=== PATIENT | female | born 1935 | race Caucasian/White ===

== ENCOUNTER → 2018-02-07 | Outpatient (CLI) | payer MEDICARE ==
[2018-02-07 12:04] LABS: Blood Urea Nitrogen 12 mg/dL (7-17)
--- NOTE | 2018-02-07 13:20 | CT ---
EXAMINATION TYPE: CT chest w con DATE OF EXAM: 02/07/2018 COMPARISON: NONE HISTORY: Cough. Follow up nodule seen on outside institution. CT DLP: 200.5 mGycm. Automated Exposure Control for Dose Reduction was Utilized. TECHNIQUE: CT scan of the thorax is performed following with IV Contrast, patient injected with 100 mL of Isovue 300. FINDINGS: LUNGS: There is bilateral multifocal noncalcific pleural parenchymal thickening possibly relating to prior asbestos exposure. Few punctate benign granulomas are seen within the right upper lobe and left lower lobe. Scattered groundglass opacities with a somewhat nodular and morphology are seen within t he lingula and right middle lobe such as on series 4 image 27. Peribronchial cuffing within the lingu la and right middle lobe are also seen. Right basilar opacity in the coronal image 34 retraction of m inor fissure and extensive pleural surface with traction bronchiectasis suggesting fibrosis measuring 1.2 cm. Lingular varicose bronchiectasis and cylindrical right middle lobe bronchiectasis are noted. Subpleural reticulation is seen in addition to biapical nodular pleural thickening. Nodule in the ri ght upper lobe measuring 7 mm on series 4 image 17 is contiguous with an area of pleural parenchymal scarring. Left basilar tree-in-bud opacities are also seen on image 30. Mucus plugging is seen within the left lung base. The most nodular consolidation is seen within the right cardiophrenic angle best visualized on smith l series 6 image 49 measuring up tor 1.6 cm. Scattered patchy groundglass opacities are seen througho ut. MEDIASTINUM: There are no greater than 1 cm hilar or mediastinal lymph nodes. No pericardial effusi on is seen. Ascending thoracic aorta is within normal limits measuring 3.3 cm as is the main pulmona ry artery measuring 2.7 cm. Moderate coronary artery calcifications are present. OTHER: There is a small hiatal hernia identified. IMPRESSION: 1. Pulmonary nodules with the largest measuring 1.6 cm at the right cardiophrenic angle within the ri ght lower lobe. Comparison with any prior outside imaging would be of benefit. If there is no prior o utside imaging available for assessment of increased or decreased in size short-term follow-up CT is recommended in 3 months as multitude of other findings suggest superimposed infectious etiology and t herefore some pulmonary nodules could be infectious or inflammatory. 2. Tree-in-bud opacity in the left lower lobe suggesting small airway disease of reactive or infectio us etiology. Peribronchial cuffing also seen within the lingula and right middle lobe with bronchiect asis may relate to reactive or infectious airway disease and/or bronchitis. Additionally these findin gs can be seen in atypical infection such as mycobacterium avium complex. 3. 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
== END ==
LOC: RADCTMAIN 11:26
PROVIDERS: ATTEND Family Medicine
DX: R91.8 Other nonspecific abnormal finding of lung field (principal); J47.9 Bronchiectasis, uncomplicated; J92.9 Pleural plaque without asbestos; J18.9 Pneumonia, unspecified organism
CPT/HCPCS: 82565; 84520; 71260; Q9967

== ENCOUNTER → 2018-03-16 | Outpatient (CLI) | payer MEDICARE ==
--- NOTE | 2018-03-21 11:02 | PE ---
EXAMINATION TYPE: PET CT fusion skull to thigh DATE OF EXAM: 03/16/2018 COMPARISON: Chest CT February 07, 2018 HISTORY: Solitary pulmonary nodule TECHNIQUE: Following the intravenous administration of 14.493 mCi of F-18 FDG, whole body images are performed from the skull base to the midthigh. Images are reviewed on the computer in the coronal, axial, and sagittal planes. Reconstructed rotating images are created on independent workstation and reviewed on the computer. A noncontrast CT is performed in conjunction with the PET scan. SCAN: Initial Scan FINDINGS: SKULL BASE AND NECK: No suspicious hypermetabolic uptake is seen. CHEST, MEDIASTINUM, AND HILAR REGION: In the left lower lobe medial aspect on axial image 107 there i s nearly 1.0 cm nodular consolidation or nodule with max SUV of 5.77. There is adjacent scattered reg ular atelectasis and/or consolidation without abnormal hypermetabolic uptake near nodule in the left lung base. There is scattered pleural/parenchymal scarring throughout both lungs including bilateral apices without abnormal hypermetabolic uptake. ABDOMEN AND PELVIS: No suspicious hypermetabolic uptake is present. OSSEOUS STRUCTURES: No suspicious hypermetabolic uptake is seen. OTHER CT: There is background underlying fairly mild to moderate emphysematous change . Coronary artery calcification is present which is noted marker for coronary artery disease. There is pleural-based consolidation possible round atelectasis in the left lung laterally near axial image 88 without abnormal hypermetabolic uptake. Gallbladder is not well-visualized and likely surgically absent. There is mild to moderate atherosclerotic change of aorta extending into branch vessels. Slight S-shaped scoliosis is present. There is facet arthropathy lower lumbar levels seen. IMPRESSION: Suspicious hypermetabolic uptake in medial nodular consolidation left lung base in which malignancy cannot be excluded. This is level of most dense irregular scarring and/or consolidation. N o adenopathy or metastatic disease is evident. Consider short-term PET/CT follow-up in 2-3 months evelin e and/or attempted sampling.
== END | disposition home or self-care (01) ==
LOC: RADPETMAIN 13:06
PROVIDERS: ATTEND Internal Medicine Critical Care Medicine
DX: R91.8 Other nonspecific abnormal finding of lung field (principal); R91.1 Solitary pulmonary nodule
CPT/HCPCS: 78815; A9552

== ENCOUNTER → 2018-04-18 | Outpatient (CLI) | payer MEDICARE ==
[2018-04-18 14:46] LABS: HCT 48.9 % (34.0-46.0); HGB 15.2 gm/dL (11.4-16.0); MCHC 31.2 g/dL (31.0-37.0); MCV 96.4 fL (80.0-100.0); Mean Platelet Volume 7.5; Platelet Count 257 k/uL (150-450); RBC 5.07 m/uL (3.80-5.40); RDW 12.9 % (11.5-15.5); WBC 9.2 k/uL (3.8-10.6)
[2018-04-18 14:55] LABS: Anion Gap 8 mmol/L; Blood Urea Nitrogen 11 mg/dL (7-17); Carbon Dioxide 27 mmol/L (22-30); Chloride 105 mmol/L (98-107); Glucose 87 mg/dL (74-99); Potassium 4.3 mmol/L (3.5-5.1); Sodium 140 mmol/L (137-145)
== END | disposition home or self-care (01) ==
LOC: LABPAT 13:46
PROVIDERS: ATTEND Thoracic Surgery (Cardiothoracic Vascular Surgery)
DX: Z01.818 Encounter for other preprocedural examination (principal); Z01.812 Encounter for preprocedural laboratory examination; R91.1 Solitary pulmonary nodule
CPT/HCPCS: 80051; 82565; 82947; 84520; 85027; 93005

== ENCOUNTER 2018-04-25 05:46 | Inpatient (IN) | payer MEDICARE ==
[2018-04-19 15:08] VITALS: BMI 23.3
[~2018-04-25 05:46] MED LIST: HYDROmorphone 0.5 MG/0.5 ML SYRINGE IVP PRN; ceFAZolin IN SWFI 2 GM/20 ML SYRINGE IVP ONE
[2018-04-25] MEDS: LACTATED RINGERS 1,000 ML IV SCH ×2 (06:37→07:28)
[2018-04-25] MEDS: ONDANSETRON 4 MG/2 ML VIAL IVP ONE ×3 (06:44→16:21)
[2018-04-25] MEDS ORDERED: ROCURONIUM BROMIDE 10 MG/ML 10 ML VIAL IV ONE (07:29)
[2018-04-25] MEDS ORDERED: SUCCINYLCHOLINE CHLORIDE 100 MG/5 ML SYR IV ONE (07:29)
[2018-04-25] MEDS ORDERED: fentaNYL (PF) 50 MCG/ML 2 ML AMP ONE (07:29)
[2018-04-25] MEDS ORDERED: PROPOFOL 10 MG/ML 20 ML VIAL IV ONE (07:29)
[2018-04-25] MEDS ORDERED: NEOSTIGMINE 1 MG/ML 10 ML VIAL ONE (07:29)
[2018-04-25] MEDS ORDERED: GLYCOPYRROLATE 0.2 MG/ML 2 ML VIAL ONE (07:29)
[2018-04-25] MEDS ORDERED: MIDAZOLAM 2 MG/2 ML VIAL ONE (07:29)
[2018-04-25] MEDS ORDERED: PHENYLEPHRINE-0.9% NACL SYG 1 MG/10 ML SYRINGE ONE (07:29)
[2018-04-25] MEDS ORDERED: ROPIVACAINE 5 MG/ML 30 ML VIAL MISCELLANE ONE ×2 (08:04)
--- NOTE | 2018-04-25 09:01 | P.OP ---
Date of Procedure: 04/25/18 Preoperative Diagnosis: Bilateral diffuse pulmonary infiltrates, localized area of increased PET Uptake in left lower lobe near inferior pulmonary ligament. Postoperative Diagnosis: Same Procedure(s) Performed: Left thoracoscopic wedge resection of left lower lobe Anesthesia: ERINNA Surgeon: Diony Clements Estimated Blood Loss (ml): 10 IV fluids (ml): 500 Urine output (ml): 0 Pathology: other (Wedge resection left lower lobe for permanent section) Condition: stable Disposition: PACU Indications for Procedure: Patient is an 82-year-old female with long-standing inflammatory lung disease of uncertain etiology. This is been stable over time. She recently underwent evaluation by pulmonary medicine because of complaints of worsening and persistent cough. Computed tomography scan confirmed the presence of bilateral patchy pulmonary infiltrates. PET scan was obtained and demonstrated a focal area of uptake in the left lower lobe by the inferior pulmonary ligament with an SUV around 6. This raised concern for malignancy in this area. Lung biopsy was requested by pulmonary medicine. Operative Findings: There was diffuse disease of the lung with poor lung compliance and evidence of bullous disease present. There were no masses palpable. Description of Procedure: The patient was brought to the operating room, placed supine on the operating table, anesthetized and intubated with a double-lumen endotracheal tube. Tube was positioned with bronchoscopic guidance. No endobronchial lesions were noted. The tube was secured and the patient turned in the right lateral decubitus position. Tube position was double checked with the bronchoscope. Left chest was sterilely prepped and draped. Incision was made in the seventh interspace and the Thoracoport was placed. The lung was deflated. Thoracoscope was placed into the chest cavity. The lung was boggy with findings as noted above. To further incisions were made 1 superiorly inferior to the first both somewhat posterior to the first. This allowed us to retract the lung and visualized the inferior pulmonary ligament. An Endo CAESAR stapler with medium thick bruce and a 45 length was used to divide the lower lobe parallel to the inferior pulmonary ligament from the diaphragmatic service toward the hilum. Following this initial incision, inferior pulmonary ligament was taken down with electrocautery. We then completed the wedge resection by dividing from the previous staple line to the inferior pulmonary ligament. Specimen was brought out onto the field and placed on the back table. 28- Ghanaian chest tube was placed through separate stab incision and positioned posterior apically. Secured with 0 Ethibond. The lung was inflated under direct vision. Rib blocks were performed at the level of the incisions posteriorly. Incisions were closed with layers of Vicryl suture and skin glue dressing applied to the 3 incisions. Chest tube site was dressed with a chest tube dressing in the chest tube connected to the Pleur-evac. We went to the back table to cut the specimen for culture and discovered the OR team and placed it in formalin. Therefore no cultures were sent. The patient was turned supine and extubated and transferred to recovery room in stable condition.
[2018-04-25] MEDS ORDERED: fentaNYL (PF) 50 MCG/ML 2 ML AMP IVP ONE (09:17)
[2018-04-25] MEDS ORDERED: FAMOTIDINE 20 MG TAB PO PRN (09:26)
[2018-04-25] MEDS ORDERED: IPRATROPIUM-ALBUTEROL 3 ML NEB IH PRN (09:28)
[2018-04-25] MEDS ORDERED: ONDANSETRON 4 MG/2 ML VIAL IVP PRN (09:28)
--- NOTE | 2018-04-25 09:53 | XR ---
EXAMINATION TYPE: XR chest 1V portable DATE OF EXAM: 04/25/2018 COMPARISON: 02/07/2018 HISTORY: Postop TECHNIQUE: Single frontal view of the chest is obtained. FINDINGS: Left-sided chest tube is seen with approximate 10% left-sided pneumothorax and subcutaneou s emphysema. There is bilateral subsegmental atelectasis or infiltrate with small effusion. Hyperinfl ation suggests COPD. Diffuse osteopenia and arthropathy of the shoulders. Hyperinflation suggests [employer] ADMINISTRATOR D. IMPRESSION: 1. Bilateral infiltrate and small effusion with 10% left-sided pneumothorax. Correlate clinically.
[2018-04-25] MEDS: DEXTROSE 5%-0.45% NACL 1,000 ML IV SCH (11:21)
[2018-04-25] MEDS: KETOROLAC 30 MG/ML 1 ML VIAL IVP SCH ×3 (11:22→21:18)
[2018-04-25] MEDS: IPRATROPIUM-ALBUTEROL 3 ML NEB IH SCH ×3 (11:44→20:18)
--- NOTE | 2018-04-25 13:17 | P.ONQ ---
Anesthesiology Proc Note - PNB - Peripheral Nerve Block Performed Other (see comment) Time Out Performed: Yes (Erector Spinae Block) Procedure Start Time: 10:05 Procedure Stop Time: 10:10 Indication: Acute Post-Operative Pain, Requested by physician Sedation Type: Awake Preparation: Sterile Prep Position: Sitting Catheter: None Needle Types: On-Q Needle Size: 50mm (2") Needle Gauge: 20 Technique: Ultrasound Injectate: 0.5% Ropivacaine (see comment for volume) (20)
--- NOTE | 2018-04-25 13:37 | P.CNPUL ---
History of Present Illness Consult date: 04/25/18 Requesting physician: Diony Clements Reason for consult: abnormal CXR/CT Chief complaint: Lung mass History of present illness: This is a very pleasant 82-year-old female patient who follows with Dr. Vazquez is her primary care physician. She has a history of rheumatoid arthritis, hyperlipidemia. She also has a history of Mycobacterium avium complex infection that was treated by a tray server in [place] and chronic obstructive pulmonary disease with a history of chronic tobacco dependence. She was initially seen by Dr. Blunt 04/03/2018 in our office as a new patient for an abnormal CAT scan. There was noted abnormalities on the right lower lobe but also on the left lower lobe. She had subsequently undergone a PET scan which was positive for the lesion of the left lung disease. He felt this was very difficult to biopsy via navigational system as the lesion was relatively small and difficult to access. She was subsequently referred to cardiothoracic surgeons who felt she was a candidate for surgical excision. She presented here today for an elective surgery by Dr. Clements. He did perform a left thorascopic wedge resection of the left lower lobe. He found diffuse disease of the lung with poor lung compliance and evidence of bullous disease as well. No palpable masses. He is seen today in consultation on the selective care unit. She is currently awake and alert in no acute distress. He is maintaining good O2 saturations in the high 90s on 2 L/m per nasal cannula. She's been afebrile. Hemodynamically stable. Chest x-ray reveals bilateral subsegmental atelectasis/infiltrate and small effusion with a 10% left -sided pneumothorax. Left-sided chest tube is in place. She is again educated regarding the use of the incentive spirometer. She is on DuoNeb inhalations 4 times a day and when necessary, Toradol for pain control. Review of Systems Constitutional: Reports fatigue, Reports weakness Eyes: denies blurred vision, denies decreased vision Ears: deny: decreased hearing Ears, nose, mouth and throat: Denies headache, Denies sore throat Cardiovascular: Denies chest pain, Denies shortness of breath Respiratory: Reports dyspnea, Reports pain on inspiration Gastrointestinal: Denies abdominal pain, Denies diarrhea, Denies nausea, Denies vomiting Genitourinary: Denies dysuria, Denies hematuria Musculoskeletal: Reports as per HPI Integumentary: Denies pruritus, Denies rash Neurological: Denies numbness, Denies weakness Psychiatric: Denies anxiety, Denies depression Endocrine: Denies fatigue, Denies weight change Hematologic/Lymphatic: Reports as per HPI Allergic/Immunologic: Reports as per HPI Past Medical History Past Medical History: GERD/Reflux, Hearing Disorder / Deafness, Hyperlipidemia, Pneumonia, Rheumatoid Arthritis (RA) Additional Past Medical History / Comment(s): PNEUMONIA 02/2018. SHORT OF BREATH W/ STAIRS. LT LUNG MASS CURRENT. History of Any Multi-Drug Resistant Organisms: None Reported Past Surgical History: Cholecystectomy Additional Past Surgical History / Comment(s): OVARIES REMOVED. REMOVAL CATARACTS. Past Anesthesia/Blood Transfusion Reactions: No Reported Reaction Smoking Status: Former smoker - Past Family History Mother Family Medical History: No Reported History Medications and Allergies Home Medications Medication Instructions Recorded Confirmed Type Aspirin [Adult Low Dose Aspirin EC] 81 mg PO DAILY 04/19/18 04/25/18 History Chlorpheniramine Maleate 4 mg PO Q4H PRN 04/19/18 04/25/18 History Cholecalciferol (Vitamin D3) 2,000 unit PO DAILY 04/19/18 04/25/18 History [Vitamin D3] Lovastatin [Mevacor] 40 mg PO HS 04/19/18 04/25/18 History Multivitamins, Thera [Multivitamin 1 tab PO DAILY 04/19/18 04/25/18 History (formulary)] Ranitidine HCl [Zantac] 150 mg PO BID PRN 04/19/18 04/25/18 History sulfaSALAzine [Azulfidine] 500 mg PO BID 04/19/18 04/25/18 History Potassium Gluconate 495 mg PO DAILY 04/25/18 04/25/18 History Allergies Allergy/AdvReac Type Severity Reaction Status Date / Time meperidine [From Demerol] Allergy Nausea & Verified 04/25/18 10:31 Vomiting Physical Exam Vitals: Vital Signs Temp Pulse Pulse Resp BP BP Pulse Ox 04/25/18 11:52 71 16 04/25/18 11:44 69 16 99 04/25/18 10:24 65 16 124/67 97 04/25/18 09:45 62 16 133/72 99 04/25/18 09:32 62 16 151/59 99 04/25/18 09:13 64 16 149/57 100 04/25/18 08:57 69 16 140/57 100 04/25/18 08:48 81 16 148/60 99 04/25/18 06:25 97.4 F L 78 18 155/78 139/75 97 Intake and Output 04/24/18 04/25/18 04/25/18 22:59 06:59 14:59 Intake Total 1100 Output Total 155 Balance 945 Intake: IV 1100 Output: Urine 150 Estimated Blood Loss 5 - Constitutional General appearance: average body habitus - EENT Eyes: EOMI, PERRLA ENT: hearing grossly normal Ears: bilateral: normal - Neck Neck: normal ROM Carotids: bilateral: upstroke normal Thyroid: bilateral: normal size - Respiratory Respiratory: left: diminished, bilateral: rales - Cardiovascular Rhythm: regular Heart sounds: normal: S1, S2 - Gastrointestinal General gastrointestinal: normal bowel sounds - Integumentary Integumentary: normal turgor - Neurologic Neurologic: CNII-XII intact - Musculoskeletal Musculoskeletal: gait normal - Psychiatric Psychiatric: A&O x's 3, appropriate affect, intact judgment & insight Results - Diagnostic Findings Chest x-ray: image reviewed Assessment and Plan Assessment: Impression: #1 Left lower lobe 1.0 cm nodular consolidation with a max SUV of 5.77. Status post left thorascopic wedge resection of the left lower lobe. There is also noted diffuse disease along with poor lung compliance and evidence of bullous disease. No masses palpable. Postoperative day #0. #2 Chronic obstructive pulmonary disease with FEV1 value 64% of predicted. #3 History of 30 year pack per day smoking. #4 History of pulmonary Mycobacterium avium complex infection. #5 Bronchiectasis. #6 Hyperlipidemia. #7 Rheumatoid arthritis. Plan: The patient was seen and evaluated by Dr. Huizar. Chest x-ray was reviewed. The patient is currently stable from the pulmonary standpoint. Continue bronchodilators. She is again educated regarding the increased use of the incentive spirometer and cough and deep breathing exercises. Titrate down the FiO2 will maintaining O2 saturations greater than 92%. Increase her activity as tolerated. Repeat chest x-ray in the a.m. We'll continue to follow. I, the cosigning physician, performed a history & physical examination of the patient. Lungs sounds with crackles in the posterior bases more so on the left. Maintaining good O2 saturations in the 90s on 2 L/m per nasal cannula. I discussed the assessment and plan of care with my nurse practitioner, Christie Jiménez. I attest to the above consultation as dictated by her. Time with Patient: Greater than 30
[2018-04-25] MEDS: ceFAZolin IN SWFI 2 GM/20 ML SYRINGE IVP SCH ×2 (16:11→23:11)
[2018-04-25] MEDS: traMADol 50 MG TAB PO SCH ×4 (16:15→21:23)
[2018-04-25] MEDS: HEPARIN SODIUM,PORCINE 5,000 UNIT/ML 1 ML VIAL SQ SCH ×2 (17:55→23:11)
[2018-04-25] MEDS: sulfaSALAzine 500 MG TAB PO SCH (20:05)
[2018-04-25] MEDS: FAMOTIDINE 20 MG TAB PO SCH (20:05)
[2018-04-25] MEDS ORDERED: ATORVASTATIN 10 MG TAB PO SCH (21:00)
[2018-04-26 04:08] VITALS: RESP 18
[2018-04-26 06:25] LABS: Basophils % (A) 0 %; Eosinophils % (A) 0 %; HCT 42.7 % (34.0-46.0); HGB 13.2 gm/dL (11.4-16.0); Lymphocytes # (A) 0.9 k/uL (1.0-4.8); Lymphocytes % (A) 7 %; MCH 30.5 pg (25.0-35.0); MCHC 30.9 g/dL (31.0-37.0); MCV 98.9 fL (80.0-100.0); Monocytes # (A) 0.9 k/uL (0-1.0); Monocytes % (A) 7 %; Neutrophils # (A) 10.5 k/uL (1.3-7.7); Neutrophils % (A) 84 %; Platelet Count 209 k/uL (150-450); RBC 4.31 m/uL (3.80-5.40); RDW 13.2 % (11.5-15.5); WBC 12.5 k/uL (3.8-10.6)
[2018-04-26 06:36] LABS: Anion Gap 8 mmol/L; Blood Urea Nitrogen 16 mg/dL (7-17); Calcium 8.8 mg/dL (8.4-10.2); Carbon Dioxide 27 mmol/L (22-30); Chloride 101 mmol/L (98-107); Glucose 129 mg/dL (74-99); Sodium 136 mmol/L (137-145)
[2018-04-26] MEDS: KETOROLAC 30 MG/ML 1 ML VIAL IVP SCH ×2 (06:38→12:55)
[2018-04-26] MEDS: IPRATROPIUM-ALBUTEROL 3 ML NEB IH SCH ×2 (07:36→11:50)
[2018-04-26] MEDS: FAMOTIDINE 20 MG TAB PO SCH (08:17)
[2018-04-26] MEDS: sulfaSALAzine 500 MG TAB PO SCH (08:18)
[2018-04-26] MEDS: traMADol 50 MG TAB PO SCH (08:21)
[2018-04-26] MEDS ORDERED: ASPIRIN 81 MG PO SCH (09:00)
[2018-04-26] MEDS ORDERED: CHOLECALCIFEROL 1,000 UNIT TAB PO SCH (09:00)
[2018-04-26] MEDS ORDERED: POTASSIUM GLUCONATE 550 MG PO SCH (09:00)
--- NOTE | 2018-04-26 10:17 | XR ---
EXAMINATION TYPE: XR chest 1V DATE OF EXAM: 04/26/2018 COMPARISON: 04/25/2018 HISTORY: Postop TECHNIQUE: Single frontal view of the chest is obtained. FINDINGS: Bilateral consolidation and pleural effusion seen. Chronic interstitial lung disease and C OPD suggested. Curvature the spine noted with arthropathy of the shoulders and diffuse osteopenia. Ch est tube seen with the stable appearing 10% left-sided pneumothorax. Subcutaneous emphysema noted. IMPRESSION: 1. Bilateral consolidation and pleural effusion stable. 2. Stable 10% left-sided pneumothorax. 3. Vague 7 mm area of nodularity in the right upper lobe be followed on a short-term follow-up x-ray. Not clearly seen on the previous exam.
[2018-04-26] MEDS: HEPARIN SODIUM,PORCINE 5,000 UNIT/ML 1 ML VIAL SQ SCH (10:20)
--- NOTE | 2018-04-26 11:18 | P.PN ---
Subjective Progress Note Date: 04/26/18 Principal diagnosis: Bilateral diffuse pulmonary infiltrates, localized area of increased PET uptake in left lower lobe near the inferior pulmonary ligament. History of rheumatoid arthritis, hyperlipidemia, Mycobacterium avium complex infection, COPD, and previous tobacco dependence. POD #1 left thoracoscopic wedge resection of left lower lobe. Patient's currently sitting up in bed in no acute distress. Does complain of pain at chest tube site which is controlled on current medication regimen. Has been ambulatory in the hallway. Objective - Vital Signs Vital signs: Vital Signs Temp 98.0 F 04/26/18 08:00 Pulse 113 H 04/26/18 08:00 Resp 18 04/26/18 08:00 BP 103/55 04/26/18 08:00 Pulse Ox 91 L 04/26/18 08:00 Intake & Output 04/25/18 04/26/18 04/26/18 18:59 06:59 18:59 Intake Total 1300 350 120 Output Total 755 89 Balance 545 261 120 Weight 68.8 kg Intake: IV 1100 Oral 200 350 120 Output: Drainage 89 Left Chest 89 Urine 750 Estimated Blood Loss 5 Other: Voiding Method Bedpan Toilet Toilet # Voids 200 - Constitutional General appearance: Present: cooperative, no acute distress, obese - Respiratory Details: Lungs sounds diminished bilaterally, left greater than right. Respirations even , nonlabored. Currently on room air infection saturation 95%. Left pleural chest tube was present this morning to waterseal, 40 mL serous drainage overnight, 130 mL since surgery, no air leak present. - Cardiovascular Details: S1, S2 present. Regular rate and rhythm, sinus rhythm on telemetry. Palpable peripheral pulses bilaterally. No edema present. No calf pain or tenderness noted. SCDs present. - Gastrointestinal Gastrointestinal Comment(s): Abdomen soft, nontender, nondistended. Active bowel sounds 4 quadrants. Tolerating diet. - Genitourinary Genitourinary Comment(s): Continues to void clear, yellow urine. - Neurologic Neurologic: Present: CNII-XII intact - Musculoskeletal Musculoskeletal: Present: gait normal, strength equal bilaterally - Psychiatric Psychiatric: Present: A&O x's 3, appropriate affect, intact judgment & insight - Allied health notes Allied health notes reviewed: nursing - Labs CBC & Chem 7: 04/26/18 05:51 04/26/18 05:51 Labs: Abnormal Lab Results - Last 24 Hours (Table) 04/26/18 04/26/18 Range/Units 05:51 05:51 WBC 12.5 H (3.8-10.6) k/uL MCHC 30.9 L (31.0-37.0) g/dL Neutrophils # 10.5 H (1.3-7.7) k/uL Lymphocytes # 0.9 L (1.0-4.8) k/uL Sodium 136 L (137-145) mmol/L Glucose 129 H (74-99) mg/dL - Imaging and Cardiology Chest x-ray: report reviewed, image reviewed Assessment and Plan (1) Bilateral pulmonary infiltrates on chest x-ray Current Visit: Yes Status: Chronic Code(s): R91.8 - OTHER NONSPECIFIC ABNORMAL FINDING OF LUNG FIELD SNOMED Code(s): 243615420 (2) COPD (chronic obstructive pulmonary disease) Current Visit: Yes Status: Chronic Code(s): J44.9 - CHRONIC OBSTRUCTIVE PULMONARY DISEASE, UNSPECIFIED SNOMED Code(s): 85258750 (3) Tobacco dependence in remission Current Visit: No Status: Resolved Code(s): F17.201 - NICOTINE DEPENDENCE, UNSPECIFIED, IN REMISSION SNOMED Code(s): 911581992 (4) Rheumatoid arthritis Current Visit: Yes Status: Chronic Code(s): M06.9 - RHEUMATOID ARTHRITIS, UNSPECIFIED SNOMED Code(s): 46825531 (5) Hyperlipidemia Current Visit: Yes Status: Chronic Code(s): E78.5 - HYPERLIPIDEMIA, UNSPECIFIED SNOMED Code(s): 32028276 (6) History of Mycobacterium avium complex infection Current Visit: No Status: Resolved Code(s): Z86.19 - PERSONAL HISTORY OF OTHER INFECTIOUS AND PARASITIC DISEASES SNOMED Code(s): 538198708 Plan: 1. Left pleural chest tube discontinued without incident. Patient tolerated well. 2. Encourage incentive spirometry 10 times every hour while awake. 3. Patient may be discharged to home. She will make her own follow-up appointments is physician's offices are closed right now for the holiday weekend. 4. Patient is continue on her home medications, she may alternate Tylenol and Motrin for pain. 5. Dressing to remain over left chest tube site for 48 hours. May reinforce dressing if drainage occurs. After that maybe shower daily, no tub baths. 6. Patient given verbal and written discharge instructions. Time with Patient: Greater than 30
--- NOTE | 2018-04-26 11:52 | P.DS ---
Providers Date of admission: 04/25/18 05:46 Expected date of discharge: 04/26/18 Attending physician: Diony Clements Consults: 04/25/18 09:28 Consult Physician Routine Consulting Provider: Livia Huizar Reason/Comments: post vats Do you want consulting provider notified?: Yes Primary care physician: Ashly Vazquez - Discharge Diagnosis(es) (1) Bilateral pulmonary infiltrates on chest x-ray Current Visit: Yes Status: Chronic (2) COPD (chronic obstructive pulmonary disease) Current Visit: Yes Status: Chronic (3) Tobacco dependence in remission Current Visit: No Status: Resolved (4) Rheumatoid arthritis Current Visit: Yes Status: Chronic (5) Hyperlipidemia Current Visit: Yes Status: Chronic (6) History of Mycobacterium avium complex infection Current Visit: No Status: Resolved Hospital Course: FINAL DIAGNOSIS: 1. Bilateral diffuse pulmonary infiltrates, localized area of increased PET uptake in left lower lobe near inferior pulmonary ligament 2. COPD 3. Previous tobacco dependence 4. History of Mycobacterium avium complex infection 5. Rheumatoid arthritis 6. Hyperlipidemia PRINCIPAL PROCEDURE: 1. Left thoracoscopic wedge resection of left lower lobe HISTORY OF PRESENT ILLNESS: This is an 82-year-old female patient who follows with Dr Vazquez on an outpatient basis. She was seen by Dr. Blunt as a new patient for an abnormal computed tomography scan with abnormalities in both the right and left lower lobes. Subsequently she underwent PET scanning which was positive for lesion in the left lung base. Dr. Blunt felt this would be difficult to biopsy via navigational bronchoscope as the lesion was very small and difficult to access. Subsequently she was referred to Dr. Clements from cardiothoracic surgery. She was recommended to undergo thoracoscopic wedge resection of the left lower lobe. All risks and benefits were explained in detail to the patient and her family, all questions were answered, and consent was obtained to proceed with surgery. HOSPITAL COURSE: The patient was brought to the hospital on 04/25/2018, taken to the preoperative area, prepared in the usual fashion, and subsequently taken to the operating room where Dr. Clements performed left thoracoscopic wedge resection of the left lower lobe. He found diffuse disease of the lung with poor lung compliance and evidence of bullous disease as well with no palpable masses. Upon completion of surgery the patient was extubated, taken to the recovery room where she was recovered and monitored hemodynamically. Eventually she was admitted to 6 E. selective care for further monitoring. Her oxygen was titrated down, she was tolerating oral diet, her pain was controlled , her chest tube was discontinued on postoperative day 1. She was ready to be discharged to home on postoperative day #1. She received written and verbal instruction regarding her medications, activity restrictions, signs and symptoms requiring physician notification, and follow-up appointments. COMPLICATIONS: The patient experienced no postoperative complications. Plan - Discharge Summary Discharge Rx Participant: No New Discharge Prescriptions: New Acetaminophen Tab [Tylenol Tab] 325 - 650 mg PO Q4H PRN #30 tablet PRN Reason: Pain Control Ibuprofen 400 mg PO Q6HR PRN #30 tablet PRN Reason: Pain Control Continue Cholecalciferol (Vitamin D3) [Vitamin D3] 2,000 unit PO DAILY Multivitamins, Thera [Multivitamin (formulary)] 1 tab PO DAILY Chlorpheniramine Maleate 4 mg PO Q4H PRN PRN Reason: ALLERGY/SINUS sulfaSALAzine [Azulfidine] 500 mg PO BID Lovastatin [Mevacor] 40 mg PO HS Aspirin [Adult Low Dose Aspirin EC] 81 mg PO DAILY Ranitidine HCl [Zantac] 150 mg PO BID PRN PRN Reason: GERD Potassium Gluconate 495 mg PO DAILY Discharge Medication List Aspirin [Adult Low Dose Aspirin EC] 81 mg PO DAILY 04/19/18 [History] Chlorpheniramine Maleate 4 mg PO Q4H PRN 04/19/18 [History] Cholecalciferol (Vitamin D3) [Vitamin D3] 2,000 unit PO DAILY 04/19/18 [History] Lovastatin [Mevacor] 40 mg PO HS 04/19/18 [History] Multivitamins, Thera [Multivitamin (formulary)] 1 tab PO DAILY 04/19/18 [History ] Ranitidine HCl [Zantac] 150 mg PO BID PRN 04/19/18 [History] sulfaSALAzine [Azulfidine] 500 mg PO BID 04/19/18 [History] Potassium Gluconate 495 mg PO DAILY 04/25/18 [History] Acetaminophen Tab [Tylenol Tab] 325 - 650 mg PO Q4H PRN #30 tablet 04/26/18 [Rx] Ibuprofen 400 mg PO Q6HR PRN #30 tablet 04/26/18 [Rx] Follow up Appointment(s)/Referral(s): Ashly Vazquez III, MD [Primary Care Provider] - 1 Week (please call to make appointment) Diony Clements MD [STAFF PHYSICIAN] - 2 Weeks (please call to make appointment) Paul Blunt DO [Doctor of Osteopathic Medicine] - 2 Weeks (please call to make appointment) Activity/Diet/Wound Care/Special Instructions: DISCHARGE INSTRUCTIONS: 1. No driving for 2 weeks, or until physician gives their ok. 2. The patient should sleep in their own bed, no medical bed needed. 3. No lifting, pushing, or pulling more than 10 pounds for 2 weeks. 4. Continue pain control per as needed orders. 5. Continue with incentive spirometry until otherwise directed by the physician. 6. Dressing to remain over chest tube site for 48 hours. Reinforce if incision is draining. 7. After dressing removal, may shower daily starting April 28. 8. Routine incision care. No powders, lotions, ointments on incisions. 9. Please call surgeon/LEAF CONDITIONER HELPER for temp greater than 101 F or purulent drainage from incisions. Discharge Disposition: HOME SELF-CARE
[2018-04-26] MEDS ORDERED: MULTIVITAMINS, THERA 1 EACH TAB PO SCH (12:00)
[2018-04-26 12:25] VITALS: BP 107/56; PULSE 103; TEMP 98
[2018-04-26] MEDS: DEXTROSE 5%-0.45% NACL 1,000 ML IV SCH (12:56)
--- NOTE | 2018-04-26 13:46 | P.PN ---
Subjective Progress Note Date: 04/26/18 Principal diagnosis: Left lower lobe lung mass status post wedge resection. This is a very pleasant 82-year-old female patient who follows with Dr. Vazquez is her primary care physician. She has a history of rheumatoid arthritis, hyperlipidemia. She also has a history of Mycobacterium avium complex infection that was treated by a development assistant in [place] and chronic obstructive pulmonary disease with a history of chronic tobacco dependence. She was initially seen by Dr. Blunt 04/03/2018 in our office as a new patient for an abnormal CAT scan. There was noted abnormalities on the right lower lobe but also on the left lower lobe. She had subsequently undergone a PET scan which was positive for the lesion of the left lung disease. He felt this was very difficult to biopsy via navigational system as the lesion was relatively small and difficult to access. She was subsequently referred to cardiothoracic surgeons who felt she was a candidate for surgical excision. She presented here today for an elective surgery by Dr. Clements. He did perform a left thorascopic wedge resection of the left lower lobe. He found diffuse disease of the lung with poor lung compliance and evidence of bullous disease as well. No palpable masses. He is seen today in consultation on the selective care unit. She is currently awake and alert in no acute distress. He is maintaining good O2 saturations in the high 90s on 2 L/m per nasal cannula. She's been afebrile. Hemodynamically stable. Chest x-ray reveals bilateral subsegmental atelectasis/infiltrate and small effusion with a 10% left -sided pneumothorax. Left-sided chest tube is in place. She is again educated regarding the use of the incentive spirometer. She is on DuoNeb inhalations 4 times a day and when necessary, Toradol for pain control. The patient is seen again today 04/26/2018 in follow-up on the selective care unit. She is currently sitting up in a chair at the bedside. She is awake and alert in no acute distress. She is maintaining good O2 saturations in the 90s on room air. His been afebrile. Hemodynamically stable. Count 12.5. Hemoglobin 13.2. Creatinine 0.70. Today's chest x-ray shows bilateral consolidation and stable pleural effusion. Stable 10% left-sided pneumothorax. Vague 7 mm area of nodularity in the right upper lobe. Her chest tube was removed today. She is working well with the incentive spirometer. She's been up in the hallway. Objective - Vital Signs Vital signs: Vital Signs Temp 98 F 04/26/18 12:00 Pulse 103 H 04/26/18 12:00 Resp 18 04/26/18 12:00 BP 107/56 04/26/18 12:00 Pulse Ox 96 04/26/18 12:00 Intake & Output 04/25/18 04/26/18 04/26/18 18:59 06:59 18:59 Intake Total 1300 350 120 Output Total 755 89 Balance 545 261 120 Weight 68.8 kg Intake: IV 1100 Oral 200 350 120 Output: Drainage 89 Left Chest 89 Urine 750 Estimated Blood Loss 5 Other: Voiding Method Bedpan Toilet Toilet # Voids 200 - Exam - Constitutional General appearance: average body habitus - EENT Eyes: EOMI, PERRLA ENT: hearing grossly normal Ears: bilateral: normal - Neck Neck: normal ROM Carotids: bilateral: upstroke normal Thyroid: bilateral: normal size - Respiratory Respiratory: left: diminished, bilateral: rales - Cardiovascular Rhythm: regular Heart sounds: normal: S1, S2 - Gastrointestinal General gastrointestinal: normal bowel sounds - Integumentary Integumentary: normal turgor - Neurologic Neurologic: CNII-XII intact - Musculoskeletal Musculoskeletal: gait normal - Psychiatric Psychiatric: A&O x's 3, appropriate affect, intact judgment & insight - Labs CBC & Chem 7: 04/26/18 05:51 04/26/18 05:51 Labs: Abnormal Lab Results - Last 24 Hours (Table) 04/26/18 04/26/18 Range/Units 05:51 05:51 WBC 12.5 H (3.8-10.6) k/uL MCHC 30.9 L (31.0-37.0) g/dL Neutrophils # 10.5 H (1.3-7.7) k/uL Lymphocytes # 0.9 L (1.0-4.8) k/uL Sodium 136 L (137-145) mmol/L Glucose 129 H (74-99) mg/dL Assessment and Plan Assessment: Impression: #1 Left lower lobe 1.0 cm nodular consolidation with a max SUV of 5.77. Status post left thorascopic wedge resection of the left lower lobe. There is also noted diffuse disease along with poor lung compliance and evidence of bullous disease. No masses palpable. Postoperative day #1. His tube removed today. #2 Chronic obstructive pulmonary disease with FEV1 value 64% of predicted. #3 History of 30 year pack per day smoking. #4 History of pulmonary Mycobacterium avium complex infection. #5 Bronchiectasis. #6 Hyperlipidemia. #7 Rheumatoid arthritis. Plan: The patient was seen and evaluated by Dr. Huizar. Chest x-ray was reviewed. Chest tube removed. The plan is for discharge home today. She is again educated regarding the increased use of the incentive spirometer and cough and deep breathing exercises. We'll follow up with Dr. Blunt in our office in 1-2 weeks' time. We'll repeat a chest x-ray then. I, the cosigning physician, performed a history & physical examination of the patient. Lungs sounds with crackles in the posterior bases more so on the left. Maintaining good O2 saturations in the 90s on room air. I discussed the assessment and plan of care with my nurse practitioner, Christie Jiménez. I attest to the above note as dictated by her.
--- NOTE | 2018-05-02 11:39 | CDI ---
Documentation Clarification Form Date: 05/02/2018 10:51:00 AM From: MITESH Lorenzo; Annalisa De Oliveira [employer] Phone: If you have a question about this query, please contact Annalisa De Oliveira [employer] at [phone] between 8am and 5pm. Admit Date: 04/25/2018 5:46:00 AM Patient Name: Demi Hughes Visit Number: [id number] Discharge Date: 04/26/2018 ATTENTION: The Clinical Documentation Specialists (CDI) and [facility] Coding Staff appreciate your assistance in clarifying documentation. Please respond to the clarification below the line at the bottom and electronically sign. The CDI & [facility] Coding staff will review the response and follow-up if needed. Please note: Queries are made part of the Legal Health Record. If you have any questions, please contact the author of this message via ITS. 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 Documentation states: Bilateral pulmonary infiltrates on chest x-ray. Patient history/risk factors: Longstanding inflammatory lung disease. History of Mycobacterium avium complex, COPD and chronic tobacco dependence. Clinical Indicators: Persistent cough Treatment: Bronchodilators. 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 Yes X No Other (please specify) Unable to determine MTDD
== END 2018-04-26 14:30 | disposition home or self-care (01) | DRG 167 ==
LOC: 2ORMAIN 05:46 → 6SEL 10:14
PROVIDERS: ADMIT Thoracic Surgery (Cardiothoracic Vascular Surgery); ATTEND Thoracic Surgery (Cardiothoracic Vascular Surgery)
PROC: 0BBJ4ZX Excision of Left Lower Lung Lobe, Percutaneous Endoscopic Approach, Diagnostic (ICD-10-PCS; principal; 2018-04-25 07:30)
DX: D3A.090 Benign carcinoid tumor of the bronchus and lung (principal); J98.11 Atelectasis; J93.9 Pneumothorax, unspecified; J47.9 Bronchiectasis, uncomplicated; J84.89 Other specified interstitial pulmonary diseases; J84.10 Pulmonary fibrosis, unspecified; E78.5 Hyperlipidemia, unspecified; F17.201 Nicotine dependence, unspecified, in remission; H91.90 Unspecified hearing loss, unspecified ear; J44.9 Chronic obstructive pulmonary disease, unspecified; K21.9 Gastro-esophageal reflux disease without esophagitis; M06.9 Rheumatoid arthritis, unspecified; Z79.82 Long term (current) use of aspirin; Z98.49 Cataract extraction status, unspecified eye; Z88.5 Allergy status to narcotic agent; Z90.49 Acquired absence of other specified parts of digestive tract; Z98.51 Tubal ligation status; Z79.899 Other long term (current) drug therapy
CPT/HCPCS: 71045; 80048; 85025; 88307; 88312; 94640; 94760

== ENCOUNTER → 2018-12-25 | Day surgery (SDC) | payer MEDICARE ==
[2018-12-23 11:56] VITALS: BMI 25.5
[~2018-12-25] MED LIST changes: +ALBUTEROL NEB (CONC) 2.5 MG/0.5 ML INHALATION ONE; +ATROPINE SULFATE 0.4 MG/ML 1 ML VIAL IM ONE; +DEXAMETHASONE SOD PHOSPHATE 10 MG/ML 1 ML VIAL IV ONE; +KETAMINE 10 MG/ML 20 ML VIAL ONE; +LACTATED RINGERS 1,000 ML IV SCH; +LIDOCAINE 1% 20 ML VIAL (10MG/ML) FOR IV START INTRADERMA ONE; +LIDOCAINE 1% 20 ML VIAL (10MG/ML) FOR IV START INTRADERMA PRN; +LIDOCAINE 2% (PF) 20 MG/ML 10 ML AMP INHALATION ONE; +LIDOCAINE 2% (PF) 20 MG/ML 5 ML VIAL INHALATION ONE; +LIDOCAINE 2% INJ 20 MG/ML INTRATRACH ONE; +LIDOCAINE VISCOUS 300 MG/15 ML CUP MUCOUS MEM ONE; +ONDANSETRON 4 MG/2 ML VIAL IVP ONE; +PROPOFOL 10 MG/ML 20 ML VIAL IV ONE; +SCOPOLAMINE 1.5MG/72HR PATCH TRANSDERM ONE; +SODIUM CHLORIDE 0.9% 1,000 ML IV SCH; -ceFAZolin IN SWFI 2 GM/20 ML SYRINGE IVP ONE
[2018-12-25 12:04] VITALS: RESP 16; TEMP 98.1
[2018-12-25 13:10] VITALS: BP 136/81; PULSE 113
[2018-12-25 18:26] LABS: Appearance,BF Cloudy; Color,BF Colorless; Nucleated Cells, Body Fluid 1285 /uL; RBC, Body Fluid 230 /uL
[2018-12-25 18:28] LABS: Mononuclear WBC,Body Fluid 31 %; Polynuclear WBC,Body Fluid 69 %; Total Cells Counted,Body Fluid 100
--- NOTE | 2018-12-25 21:53 | OP ---
OPERATIVE REPORT PROCEDURE: Bronchoscopy, airway examination, therapeutic lavage, bronchoalveolar lavage. PREOPERATIVE DIAGNOSIS: Rule out MAC infection. POSTOPERATIVE DIAGNOSIS: Rule out MAC infection. PHYSICAL THERAPIST CLINIC DIRECTOR: MG Katelin DAILY. There was informed consent. There was universal timeout. The patient's procedure took place in room #1. Anesthesia provided general anesthesia/unconscious sedation. DESCRIPTION OF PROCEDURE: After the patient was adequately sedated and being fully monitored, the bronchoscope was inserted through the right nostril. It passed through the right nasopharynx into the oropharynx. The hypopharyngeal structures, including anterior commissure, true cords, false cords, arytenoids, piriform sinuses, right and left valleculae and epiglottis, all appeared normal. There was some purulence noted in the hypopharynx. The hypopharyngeal area was topicalized and the bronchoscope was pushed into the trachea. The trachea did have some purulent-looking secretions. They were suctioned. Tracheal john was sharp. Next there was topicalization of the right and left mainstem. The right upper lobe and its 3 segments, the right middle lobe and its 2 segments, right lower lobe and its 5 segments, left upper lobe proper and its 2 segments, lingula and its 2 segments, and left lower lobe and its 4 segments all had similar findings of diffuse airway erythema and edema. There was some mucosal friability. The vasculature was engorged. There were thick secretions noted throughout. They were purulent in color. Anyway, the bronchoscope was wedged into the right middle lobe. The BAL took place. The patient tolerated the procedure well. Thirty milliliters was collected. The rest of the secretions from the airways were suctioned. The patient tolerated the procedure well. The bronchoscope was withdrawn. The patient will be recovered. MMODL / IJN: [id number] /
== END | disposition home or self-care (01) ==
LOC: ORWHC2ENDO 11:18
PROVIDERS: ATTEND Internal Medicine Critical Care Medicine
DX: R05 Cough (principal); J84.9 Interstitial pulmonary disease, unspecified; R91.8 Other nonspecific abnormal finding of lung field; Z86.19 Personal history of other infectious and parasitic diseases; J44.9 Chronic obstructive pulmonary disease, unspecified; Z87.01 Personal history of pneumonia (recurrent); E78.00 Pure hypercholesterolemia, unspecified; M06.9 Rheumatoid arthritis, unspecified; Z87.891 Personal history of nicotine dependence; Z79.1 Long term (current) use of non-steroidal anti-inflammatories (NSAID); Z79.82 Long term (current) use of aspirin; Z79.52 Long term (current) use of systemic steroids; Z79.899 Other long term (current) drug therapy; Z88.5 Allergy status to narcotic agent
CPT/HCPCS: 94640; 87798 ×3; 87496; 87498; 87529; 88108; 88305; 89050; 87252; 87502; 87634; 87070; 87205; 87116; 87102; 87077; 87186; 87206; 31624; J2001 ×2; J0461; J2704

== ENCOUNTER 2019-03-17 12:01 | Inpatient (IN) | payer MEDICARE ==
[2019-03-17] MEDS ORDERED: SODIUM CHLORIDE 0.9% 500 ML 500 ML IV STA (12:06)
[2019-03-17 12:09] LABS: Glucose,Whole Blood 144 mg/dL (75-99)
--- NOTE | 2019-03-17 12:11 | ED ---
General Adult HPI - General Stated complaint: poss stroke Time Seen by Provider: 03/17/19 12:06 - History of Present Illness Initial comments: Dictation was produced using [employer] dictation software. please excuse any grammatical, word or spelling errors. Chief Complaint: 83-year-old female with past medical history of pneumonia, cancer and GERD presents with strokelike symptoms. History of Present Illness: Patient is a 83-year-old female she is positive that her symptoms started after waking up this morning. She lives at home by herself. Patient noted that she was having difficulty in eating breakfast due to some clumsiness. Patient was sure last normal at 6 PM yesterday. She states she felt fine when she went to bed. She was on the phone after waking up and was noted to have slurred speech. She reports that her symptoms are improved however she is noted to have some facial droop on the left side. Patient also felt that she was having difficult in walking due to some weakness in her left leg. Denies any sensory deficits. Patient was brought into the emergency department by EMS. Patient has no other complaints at this time. The ROS documented in this emergency department record has been reviewed and confirmed by me. Those systems with pertinent positive or negative responses have been documented in the HPI. All other systems are other negative and/or noncontributory. PHYSICAL EXAM: General Impression: Alert and oriented x3, not in acute distress HEENT: Normocephalic atraumatic, extra-ocular movements intact, pupils equal and reactive to light bilaterally, mucous membranes moist. Cardiovascular: Heart regular rate and rhythm, S1&S2 audible, no murmurs, rubs or gallops Chest: Lungs clear to auscultation bilaterally, no rhonchi, no wheeze, no rales Abdomen: Bowel sounds present, abdomen soft, non-tender, non-distended, no organomegaly Musculoskeletal: Pulses present and equal in all extremities, no peripheral edema Motor: no focal deficits noted Neurological: Left facial droop, left lower extremity drift, follows commands, no aphasia, no dysarthria Skin: Intact with no visualized rashes Psych: Normal affect and mood ED course: 83-year-old female presents with strokelike symptoms. She reports that her symptoms started after breakfast at approximately 8 8:30 AM however she is not entirely sure. This is more than likely a wick upstroke.Patient is activated: Stroke. Discussed patient case Dr. Zhang who agrees that patient is not a TPA candidate. Laboratory evaluation obtained CBC unremarkable. Coag panel unremarkable. Metabolic panel shows no significant abnormalities. Patient does have some mild hyperglycemia. Computed tomography scan of the brain shows no acute processes. CT angiogram of the head and neck was obtained showing stenotic findings. 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 Chest x-ray is nonacute. Patient reevaluated bedside so continues to have left facial droop. She does have some left lower extremity weakness over to improve since arriving to the emergency department. Clinical presentation consistent with cerebrovascular accident. Patient is given aspirin. EKG interpretation: Ventricular rate 106, sinus tachycardia,. 150, QRS 80, QTC 494. No ME prolongation, no QTC prolongation, no ST or T-wave changes noted. EKG compared to 04/18/2018 showing no changes. Overall, this EKG is unremarkable - Related Data Home Medications Medication Instructions Recorded Confirmed Aspirin [Adult Low Dose Aspirin EC] 81 mg PO DAILY 04/19/18 03/17/19 Chlorpheniramine Maleate 4 mg PO Q6H PRN 04/19/18 03/17/19 Cholecalciferol (Vitamin D3) 2,000 unit PO DAILY 04/19/18 03/17/19 [Vitamin D3] Lovastatin [Mevacor] 40 mg PO HS 04/19/18 03/17/19 Multivitamins, Thera [Multivitamin 1 tab PO DAILY 04/19/18 03/17/19 (formulary)] sulfaSALAzine [Azulfidine] 500 mg PO BID 04/19/18 03/17/19 Potassium Gluconate 495 mg PO DAILY 04/25/18 03/17/19 predniSONE 10 mg PO Q48H 12/23/18 03/17/19 Ibuprofen [Motrin] 400 mg PO TID PRN 03/17/19 03/17/19 Ipratropium-Albuterol Nebulize 3 ml INHALATION RT-Q4H PRN 03/17/19 03/17/19 [Duoneb 0.5 mg-3 mg/3 ml Soln] Previous Rx's Medication Instructions Recorded Acetaminophen Tab [Tylenol Tab] 325 - 650 mg PO Q4H PRN #30 tablet 04/26/18 Allergies Allergy/AdvReac Type Severity Reaction Status Date / Time meperidine [From Demerol] Allergy Nausea & Verified 03/17/19 14:15 Vomiting Review of Systems ROS Statement: Those systems with pertinent positive or pertinent negative responses have been documented in the HPI. ROS Other: All systems not noted in ROS Statement are negative. Past Medical History Past Medical History: GERD/Reflux, Hearing Disorder / Deafness, Hyperlipidemia, Pneumonia, Rheumatoid Arthritis (RA) Additional Past Medical History / Comment(s): PNEUMONIA 02/2018. SHORT OF BREATH W/ STAIRS. LT LUNG MASS CURRENT. History of Any Multi-Drug Resistant Organisms: None Reported Past Surgical History: Cholecystectomy Additional Past Surgical History / Comment(s): OVARIES REMOVED. REMOVAL CATARACTS. LT LUNG SX Past Anesthesia/Blood Transfusion Reactions: No Reported Reaction Smoking Status: Former smoker - Past Family History Mother Family Medical History: No Reported History Course Vital Signs 03/17/19 03/17/19 03/17/19 12:04 12:05 12:16 Temperature 98.0 F 98.0 F 98.1 F Pulse Rate 114 H 101 H 100 Respiratory 16 16 Rate Blood Pressure 154/115 154/115 146/82 O2 Sat by Pulse 90 L 90 L 92 L Oximetry 03/17/19 03/17/19 03/17/19 12:30 12:45 13:15 Temperature Pulse Rate 98 93 90 Respiratory 16 16 16 Rate Blood Pressure 152/84 156/89 155/88 O2 Sat by Pulse 96 96 96 Oximetry Medical Decision Making - Lab Data Result diagrams: 03/17/19 12:05 03/17/19 12:05 Lab Results 03/17/19 03/17/19 03/17/19 Range/Units 12:05 12:05 12:05 WBC 9.6 (3.8-10.6) k/uL RBC 5.15 (3.80-5.40) m/uL Hgb 15.9 (11.4-16.0) gm/dL Hct 48.4 H (34.0-46.0) % MCV 94.0 (80.0-100.0) fL MCH 30.9 (25.0-35.0) pg MCHC 32.9 (31.0-37.0) g/dL RDW 13.0 (11.5-15.5) % Plt Count 302 (150-450) k/uL Neutrophils % 72 % Lymphocytes % 18 % Monocytes % 6 % Eosinophils % 1 % Basophils % 1 % Neutrophils # 6.9 (1.3-7.7) k/uL Lymphocytes # 1.7 (1.0-4.8) k/uL Monocytes # 0.6 (0-1.0) k/uL Eosinophils # 0.1 (0-0.7) k/uL Basophils # 0.1 (0-0.2) k/uL PT (9.0-12.0) sec INR (<1.2) APTT (22.0-30.0) sec Sodium 142 (137-145) mmol/L Potassium 3.9 (3.5-5.1) mmol/L Chloride 109 H (98-107) mmol/L Carbon Dioxide 22 (22-30) mmol/L Anion Gap 11 mmol/L BUN 17 (7-17) mg/dL Creatinine 0.72 (0.52-1.04) mg/dL Est GFR (CKD-EPI)AfAm 89 (>60 ml/min/1.73 sqM) Est GFR (CKD-EPI)NonAf 77 (>60 ml/min/1.73 sqM) Glucose 167 H (74-99) mg/dL POC Glucose (mg/dL) 144 H (75-99) mg/dL POC Glu Waste Treatment Operator ID Joey Cabral Calcium 9.7 (8.4-10.2) mg/dL Total Bilirubin 1.2 (0.2-1.3) mg/dL AST 23 (14-36) U/L ALT 18 (9-52) U/L Alkaline Phosphatase 95 (38-126) U/L Total Creatine Kinase (30-135) U/L CK-MB (CK-2) (0.0-2.4) ng/mL CK-MB (CK-2) Rel Index Troponin I (0.000-0.034) ng/mL Total Protein 7.1 (6.3-8.2) g/dL Albumin 4.6 (3.5-5.0) g/dL 03/17/19 03/17/19 Range/Units 12:05 12:05 WBC (3.8-10.6) k/uL RBC (3.80-5.40) m/uL Hgb (11.4-16.0) gm/dL Hct (34.0-46.0) % MCV (80.0-100.0) fL MCH (25.0-35.0) pg MCHC (31.0-37.0) g/dL RDW (11.5-15.5) % Plt Count (150-450) k/uL Neutrophils % % Lymphocytes % % Monocytes % % Eosinophils % % Basophils % % Neutrophils # (1.3-7.7) k/uL Lymphocytes # (1.0-4.8) k/uL Monocytes # (0-1.0) k/uL Eosinophils # (0-0.7) k/uL Basophils # (0-0.2) k/uL PT 10.0 (9.0-12.0) sec INR 0.9 (<1.2) APTT 21.5 L (22.0-30.0) sec Sodium (137-145) mmol/L Potassium (3.5-5.1) mmol/L Chloride (98-107) mmol/L Carbon Dioxide (22-30) mmol/L Anion Gap mmol/L BUN (7-17) mg/dL Creatinine (0.52-1.04) mg/dL Est GFR (CKD-EPI)AfAm (>60 ml/min/1.73 sqM) Est GFR (CKD-EPI)NonAf (>60 ml/min/1.73 sqM) Glucose (74-99) mg/dL POC Glucose (mg/dL) (75-99) mg/dL POC Glu Waste Treatment Operator ID Calcium (8.4-10.2) mg/dL Total Bilirubin (0.2-1.3) mg/dL AST (14-36) U/L ALT (9-52) U/L Alkaline Phosphatase (38-126) U/L Total Creatine Kinase 39 (30-135) U/L CK-MB (CK-2) 0.6 (0.0-2.4) ng/mL CK-MB (CK-2) Rel Index 1.5 Troponin I <0.012 (0.000-0.034) ng/mL Total Protein (6.3-8.2) g/dL Albumin (3.5-5.0) g/dL Disposition Clinical Impression: Cerebrovascular accident Disposition: ADMITTED IP TO THIS [facility] Condition: Fair Referrals: Paul Blunt DO [Family Provider] - 1-2 days Decision Time: 14:43
[2019-03-17 12:24] LABS: Albumin 4.6 g/dL (3.5-5.0); Calcium 9.7 mg/dL (8.4-10.2); Potassium 3.9 mmol/L (3.5-5.1); Total Bilirubin 1.2 mg/dL (0.2-1.3); Total Protein 7.1 g/dL (6.3-8.2)
--- NOTE | 2019-03-17 12:30 | CT ---
EXAMINATION TYPE: CT brain wo con for TPA DATE OF EXAM: 03/17/2019 COMPARISON: None HISTORY: 83-year-old female generalized weakness and left side facial droop TECHNIQUE: Examination was done in axial plane without intravenous contrast. Coronal and sagittal r econstructions performed. CT DLP: unavailable Automated exposure control for dose reduction was used. FINDINGS: There is no evidence of acute intracranial hemorrhage, acute ischemic changes, mass, mass-effect, or extra-axial fluid collection. There is no effacement of cerebral sulci or basal subarachnoid cister ns. There is no hydrocephalus. There is no midline shift. Fowler-white matter distinction is preserv ed. Mild generalized supratentorial volume loss. Moderate patchy white matter hypodensities in the subcor tical and periventricular regions of both cerebral hemispheres. Benign basal ganglia calcifications o n the right. Paranasal sinuses and mastoid air cells are well pneumatized. Orbits and globes are intact. IMPRESSION: Mild generalized atrophy and moderate patchy changes of chronic small vessel ischemic disease. No acu te intracranial abnormality seen.
[2019-03-17 12:41] LABS: Basophils # (A) 0.1 k/uL (0-0.2); Basophils % (A) 1 %; Eosinophils # (A) 0.1 k/uL (0-0.7); Eosinophils % (A) 1 %; HCT 48.4 % (34.0-46.0); HGB 15.9 gm/dL (11.4-16.0); Lymphocytes # (A) 1.7 k/uL (1.0-4.8); Lymphocytes % (A) 18 %; MCH 30.9 pg (25.0-35.0); MCHC 32.9 g/dL (31.0-37.0); Mean Platelet Volume 7.5; Monocytes # (A) 0.6 k/uL (0-1.0); Monocytes % (A) 6 %; Neutrophils # (A) 6.9 k/uL (1.3-7.7); Neutrophils % (A) 72 %; Platelet Count 302 k/uL (150-450); RBC 5.15 m/uL (3.80-5.40); WBC 9.6 k/uL (3.8-10.6)
[2019-03-17 12:51] LABS: INR 0.9 (<1.2)
[2019-03-17 12:53] LABS: Partial Thromboplastin Time 21.5 sec (22.0-30.0)
[2019-03-17 12:54] LABS: Creatine Kinase MB 0.6 ng/mL (0.0-2.4); Troponin I <0.012 ng/mL (0.000-0.034)
[2019-03-17] MEDS ORDERED: ASPIRIN 81 MG PO STA (12:55)
[2019-03-17 13:01] LABS: Creatine Kinase 39 U/L (30-135)
--- NOTE | 2019-03-17 13:18 | CT ---
EXAMINATION TYPE: CT angio head neck DATE OF EXAM: 03/17/2019 COMPARISON: CT brain same day. Also, correlation CT chest 02/07/2018 HISTORY: 83-year-old female Generalized weakness and left side facial droop TECHNIQUE: Contiguous axial scanning of the neck performed with IV Contrast, patient injected with 50 mL of Isovue 370. Coronal/sagittal MIP reconstructions performed. 3-D reconstructions generated on a dedicated independent workstation. CT DLP: 304.5 mGycm Automated exposure control for dose reduction was used. FINDINGS: NECK: Conventional arch vessel branching anatomy. The origin of the brachiocephalic artery is excluded from view. The remainder of the brachiocephalic artery, tortuous right common carotid artery, and the rig ht internal iliac artery are patent. The left subclavian artery shows mild atherosclerotic calcifications at its origin. The left vertebra l artery is slightly dominant. Both vertebral arteries are patent throughout their course. The tortuous left common carotid artery and the left internal carotid artery are patent. Stable pleural parenchymal scarring and emphysematous change in the visualized upper lungs. HEAD: The left vertebral artery is dominant. Both vertebral arteries and basilar artery are patent. The anterior circulation is patent without significant stenosis or arterial occlusion. There is a tiny 3 mm aneurysm projecting superiorly from proximal M2 branch of the right middle cereb ral artery (refer to coronal image 38 and sagittal image 28). IMPRESSION: NECK: 1. NO HEMODYNAMICALLY SIGNIFICANT CAROTID OR VERTEBRAL ARTERY STENOSIS ON EITHER SIDE. 2. DOMINANT LEFT VERTEBRAL ARTERY. HEAD: 1. NO LARGE VESSEL INTRACRANIAL ARTERIAL OCCLUSION OR SIGNIFICANT STENOSIS SEEN. 2. 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 FOLLOW-UP INDICATED.
--- NOTE | 2019-03-17 14:02 | XR ---
EXAMINATION TYPE: XR chest 2V DATE OF EXAM: 03/17/2019 COMPARISON: 04/26/2018 HISTORY: 83-year-old female confusion, altered mental status, weakness TECHNIQUE: AP and lateral views FINDINGS: Heart normal size. Aorta within normal limits. Multifocal pleural parenchymal opacities redemonstrate d, greatest at the left base shows some improvement from 04/26/2018. No sizable effusion. IMPRESSION: Multifocal pleural parenchymal scarring. Patchy left basilar opacity persists but shows some improvem ent from 2018, probably chronic now. Subtle underlying infiltrate would be difficult to exclude. Clin ically correlate.
[2019-03-17] MEDS: SODIUM CHLORIDE 0.9% 1,000 ML IV SCH (15:49)
[2019-03-17] MEDS ORDERED: IBUPROFEN 400 MG TAB PO PRN (16:40)
[2019-03-17] MEDS ORDERED: ACETAMINOPHEN TAB 325 MG TAB PO PRN (16:40)
[2019-03-17] MEDS ORDERED: IPRATROPIUM-ALBUTEROL 3 ML NEB INHALATION PRN (16:40)
[2019-03-17] MEDS ORDERED: diphenhydrAMINE 25 MG CAP PO PRN (16:40)
[2019-03-17] MEDS ORDERED: ALPRAZolam 0.25 MG TAB PO PRN (16:40)
[2019-03-17 17:29] LABS: Glucose,Whole Blood 83 mg/dL (75-99)
[2019-03-17] MEDS: INSULIN ASPART (NovoLOG) 100 UNIT/ML VIAL SQ SCH ×2 (17:53→21:18)
--- NOTE | 2019-03-17 18:35 | P.CNNES ---
History of Present Illness Consult date: 03/17/19 Requesting physician: Gaurav Abreu Reason for Consult: CVA Chief complaint: Facial droop, slurred speech and hand clumsiness History of Present Illness: This is an 83-year-old right-handed female who was vascular risk factors include advanced age and hyperlipidemia. She has a remote history of tobacco use quit many years ago. She denies a history of hypertension or diabetes. Patient was noted by her daughter to have a left sided facial droop with slurred speech this morning. She apparently woke up with these symptoms. While she was eating breakfast, she noted that both of her hands were clumsy. Because of these abrupt onset of neurological symptoms, patient presented to the emergency room. Case was discussed with interventional neurology who did not deem that she was an intervention candidate, and patient was admitted to our hospital for conservative management. Patient states that since admission, her face and speech had improved. Her hands are no longer clumsy. She denies recent head trauma or changes in her physical habits, diet or medications. Neurologically, patient denies decreased level or loss of consciousness, headache, diplopia, other visual changes, facial numbness, vertigo, tinnitus, hearing loss, dysphagia, aphasia, other focal numbness or weakness not mentioned above, tremors, bowel or bladder incontinence or ataxia. Review of Systems I have performed a 14 point review of systems with the patient that are negative except as per HPI. Past Medical History Past Medical History: GERD/Reflux, Hearing Disorder / Deafness, Hyperlipidemia, Pneumonia, Rheumatoid Arthritis (RA) Additional Past Medical History / Comment(s): PNEUMONIA 02/2018. SHORT OF BREATH W/ STAIRS. History of Any Multi-Drug Resistant Organisms: None Reported Past Surgical History: Cholecystectomy Additional Past Surgical History / Comment(s): OVARIES REMOVED. REMOVAL CATARACTS. LT LUNG lobectomy Past Anesthesia/Blood Transfusion Reactions: No Reported Reaction Past Psychological History: No Psychological Hx Reported Smoking Status: Former smoker Past Alcohol Use History: Occasional Additional Past Alcohol Use History / Comment(s): SMOKED 20 YEARS, 1 PPD, QUIT 1977 Past Drug Use History: None Reported - Past Family History Mother Family Medical History: No Reported History Medications and Allergies Home Medications Medication Instructions Recorded Confirmed Type Aspirin [Adult Low Dose Aspirin EC] 81 mg PO DAILY 04/19/18 03/17/19 History Chlorpheniramine Maleate 4 mg PO Q6H PRN 04/19/18 03/17/19 History Cholecalciferol (Vitamin D3) 2,000 unit PO DAILY 04/19/18 03/17/19 History [Vitamin D3] Lovastatin [Mevacor] 40 mg PO HS 04/19/18 03/17/19 History Multivitamins, Thera [Multivitamin 1 tab PO DAILY 04/19/18 03/17/19 History (formulary)] sulfaSALAzine [Azulfidine] 500 mg PO BID 04/19/18 03/17/19 History Potassium Gluconate 495 mg PO DAILY 04/25/18 03/17/19 History Acetaminophen Tab [Tylenol Tab] 325 - 650 mg PO Q4H PRN #30 tablet 04/26/18 03/17/19 Rx predniSONE 10 mg PO Q48H 12/23/18 03/17/19 History Ibuprofen [Motrin] 400 mg PO TID PRN 03/17/19 03/17/19 History Ipratropium-Albuterol Nebulize 3 ml INHALATION RT-Q4H PRN 03/17/19 03/17/19 History [Duoneb 0.5 mg-3 mg/3 ml Soln] Allergies Allergy/AdvReac Type Severity Reaction Status Date / Time meperidine [From Demerol] Allergy Nausea & Verified 03/17/19 14:15 Vomiting Physical Examination - Vital Signs Vital Signs: Vital Signs Temp Pulse Pulse Resp BP BP Pulse Ox 03/17/19 16:34 88 03/17/19 16:30 97.4 F L 85 148/81 99 03/17/19 15:52 87 16 139/85 99 03/17/19 15:17 89 16 146/81 97 03/17/19 13:15 90 16 155/88 96 03/17/19 12:45 93 16 156/89 96 03/17/19 12:30 98 16 152/84 96 03/17/19 12:16 98.1 F 100 146/82 92 L 03/17/19 12:05 98.0 F 101 H 16 154/115 90 L 03/17/19 12:04 98.0 F 114 H 16 154/115 90 L Intake and Output 03/17/19 03/17/19 03/17/19 06:59 14:59 22:59 Intake Total 360 Balance 360 Intake: Oral 360 Other: Weight 68.353 kg Gen NAD Pleasant and cooperative HEENT NCAT Sclera without icterus O/P clear Neck Supple No carotid bruit Cor RRR no m/r/g Lungs CTAB Abd Soft NTND +BS Ext Warm to touch No edema Neuro MS A+Ox4 Normal fluency Able to follow all commands CN PERRL VFF no APD EOMI no nystagmus or GRABIEL Mildly decreased left NLF Smile is symmetric Masseter's symmetric Hearing intact to normal voice bilaterally Speech not dysarthric Equal elevation of palate Tongue midline Sym shrug and SCM bilaterally Motor Normal bulk/tone No pronator or tremors Strength 5/5 sym throughout Sens Intact to LT x4 No neglect or extinction Coord No dysmetria on FTN bilaterally DTRs 2+/4 sym throughout Toes downgoing bilaterally No clonus at achilles Gait Deferred NIHSS 1 for FD Results - Laboratory Findings CBC and BMP: 03/17/19 12:05 03/17/19 12:05 Abnormal Lab Findings: Abnormal Labs 03/17/19 03/17/19 03/17/19 12:05 12:05 12:05 Hct 48.4 H APTT Chloride 109 H Glucose 167 H POC Glucose (mg/dL) 144 H 03/17/19 12:05 Hct APTT 21.5 L Chloride Glucose POC Glucose (mg/dL) - Diagnostic Findings Additional findings: CT Head wo cont 03/17/19. Nil acute. CTA Head/Neck 03/17/19. No LVO or stenosis. Incidental small 3mm aneurysm in right M2. I have reviewed all neuroimages myself. Assessment and Plan Assessment: Possible CVA, such as lacunar syndrome clumsy-hand dysarthria, though per history patient believes both hands were clumsy, which is not really localizing Plan: -MRI Brain wo cathleen -CTA Head/Neck reviewed -Obtain TTE -ASA 81mg/day -Statin therapy -Permissive HTN <220 until MRI results known -PT/OT/SP per protocol -DVT prophylaxis: Heparin SC -Stroke education given to patient -d/w patient in detail. All questions answered. Thank you for this consultation. Please call with ?. Time with Patient: Greater than 30 (Time spent in direct patient care, greater than 50% of which was spent in [id number] counseling and coordination of care: 70 minutes.)
--- NOTE | 2019-03-17 19:38 | HP ---
HISTORY AND PHYSICAL DATE OF SERVICE: 03/17/2019. CHIEF COMPLAINTS: Slurring of speech. HISTORY OF PRESENT ILLNESS: This 83-year-old woman with a past medical history of multiple medical problems including history of GERD, hyperlipidemia, history of pneumonia, rheumatoid arthritis, history of cholecystectomy, being followed by Dr. Vazquez in the outpatient setting apparently woke up this morning. The patient lives by herself. The patient had some difficulty in eating breakfast because of some clumsiness of the hands. The patient also suspected some facial droop and the patient was on the phone with the daughter and the patient had some difficulty in speaking. The patient also noted some weakness of the left leg and the patient came to [facility] and admitted for further evaluation and treatment. There is no history of any fever, rigors. No history of headache, loss of consciousness, seizures at this time. A CT scan of the brain and CT angiography did not show any major abnormalities and the patient was admitted for further recommendations and evaluation. Neurology consultation underway. There is no history of fever, rigors or chills. No history of headache, loss of consciousness, seizures. PAST MEDICAL HISTORY: History of hearing difficulty, deafness, hyperlipidemia, history of pneumonias, rheumatoid arthritis. History of cholecystectomy. MEDICATIONS: Prior to admission home medications are: 1. Sulfasalazine 500 mg p.o. b.i.d. 2. Prednisone 10 mg p.o. q48 hours. 3. Potassium gluconate 495 mg p.o. daily. 4. Multivitamins. 5. Mevacor 40 mg q.h.s. 6. DuoNeb q.4 p.r.n. 7. Motrin 400 mg t.i.d. p.r.n. 8. Vitamin D3 2000 daily. 9. Chlorpheniramine maleate 4 mg q.4 hours q.6h p.r.n. 10.Aspirin 81 mg. 11.Tylenol 320 mg q.4 p.r.n. ALLERGIES: DEMEROL. FAMILY HISTORY: No history of heart disease or strokes in the family. SOCIAL HISTORY: History of occasional alcohol. Previous history of smoking. REVIEW OF SYSTEMS: ENT: No diminished vision. No diminished hearing. Cardiovascular: No angina or palpitations. RESPIRATORY: As mentioned earlier. GI no nausea or vomiting. GI no dysuria or hematuria. Nervous System: No numbness or weakness. Allergy/Immunology: No asthma or hayfever. MUSCULOSKELETAL: As mentioned earlier. HEMATOLOGY/ONCOLOGY: No history of anemia. ENDOCRINE: No history of diabetes or hypothyroidism. CONSTITUTIONAL: As mentioned earlier. DERMATOLOGY negative. RHEUMATOLOGY: Negative. PSYCHIATRIC: As mentioned earlier. PHYSICAL EXAM: Patient is alert, oriented x3. Pulse is 85, blood pressure 140/81, respirations 16, temperature 97.4, pulse ox 99% on 2 L. HEENT: Conjunctivae normal. Oral mucosa moist. NECK is no jugular venous distention. No carotid bruit. No lymph node enlargement. CARDIOVASCULAR SYSTEMS: S1, S2 muffled. RESPIRATIONS: Breath sounds diminished in the bases. No rhonchi and no crackles. ABDOMEN: Soft, nontender. No mass palpable. LEGS: No edema. No swelling. NERVOUS SYSTEM: Higher functions as mentioned earlier. Moves all four limbs. No focal deficits. Lymphatics: No lymph nodes palpable in the neck, axillae or groin. SKIN: No ulcer, no rashes and no bleeding. JOINTS: No active deforming arthropathy. LABS: WBC 9.2, hemoglobin 15.9, sodium 142, potassium 3.9 and glucose 167 and 145. ASSESSMENT: 1. Dysarthria, possible acute transient ischemic attack, present on admission. 2. History of gastroesophageal reflux disease. 3. Hyperlipidemia. 4. History of pneumonia. 5. History of rheumatoid arthritis. 6. History of cholecystectomy. 7. History of cataracts. 8. Remote history of nicotine dependence. 9. NO CODE, NO CPR, NO VENT. RECOMMENDATIONS AND DISCUSSION: This 83-year-old woman who presented with multiple complex medical issues, we will monitor the patient closely, continue the current medications, management and symptomatic treatment. We will initiate antiplatelet agents, neurovascular workup including MRI, neurology consultation, echocardiogram. CT angio has already been done. DVT prophylaxis. Guarded prognosis because of multiple complex medical issues. A copy of this dictation being forwarded to Dr. Vazquez who is the primary physician. Also recommend PT/OT evaluation also prior to discharge. MMODL / IJN: [id number] /
[2019-03-17] MEDS: ATORVASTATIN 10 MG TAB PO SCH (21:17)
[2019-03-17] MEDS: HEPARIN SODIUM,PORCINE 5,000 UNIT/ML 1 ML VIAL SQ SCH (21:17)
[2019-03-17] MEDS: sulfaSALAzine 500 MG TAB PO SCH (21:18)
[2019-03-17 21:19] LABS: Glucose,Whole Blood 92 mg/dL (75-99)
[2019-03-18 06:28] LABS: Glucose,Whole Blood 101 mg/dL (75-99)
[2019-03-18] MEDS: INSULIN ASPART (NovoLOG) 100 UNIT/ML VIAL SQ SCH ×4 (06:30→20:05)
[2019-03-18] MEDS: PANTOPRAZOLE 40 MG TABLET PO SCH (06:30)
[2019-03-18 06:46] LABS: Basophils % (A) 1 %; Eosinophils # (A) 0.2 k/uL (0-0.7); Eosinophils % (A) 4 %; HCT 46.7 % (34.0-46.0); HGB 14.8 gm/dL (11.4-16.0); Lymphocytes # (A) 1.3 k/uL (1.0-4.8); Lymphocytes % (A) 19 %; MCH 30.3 pg (25.0-35.0); MCHC 31.7 g/dL (31.0-37.0); MCV 95.6 fL (80.0-100.0); Mean Platelet Volume 7.4; Monocytes # (A) 0.5 k/uL (0-1.0); Monocytes % (A) 7 %; Neutrophils # (A) 4.7 k/uL (1.3-7.7); Neutrophils % (A) 67 %; Platelet Count 243 k/uL (150-450); RBC 4.88 m/uL (3.80-5.40)
[2019-03-18 06:53] LABS: African American GFR (CKD) >90 (>60 ml/min/1.73 sqM); Anion Gap 9 mmol/L; Blood Urea Nitrogen 9 mg/dL (7-17); Calcium 8.7 mg/dL (8.4-10.2); Carbon Dioxide 24 mmol/L (22-30); Chloride 106 mmol/L (98-107); Cholesterol 138 mg/dL (<200); Glucose 113 mg/dL (74-99); HDL Cholesterol 53 mg/dL (40-60); LDL Cholesterol,Calculated 61 mg/dL (0-99); Potassium 3.6 mmol/L (3.5-5.1); Sodium 139 mmol/L (137-145); Triglycerides 120 mg/dL (<150)
[2019-03-18] MEDS: sulfaSALAzine 500 MG TAB PO SCH ×2 (08:40→20:05)
[2019-03-18] MEDS: HEPARIN SODIUM,PORCINE 5,000 UNIT/ML 1 ML VIAL SQ SCH ×2 (08:40→20:04)
[2019-03-18] MEDS: CHOLECALCIFEROL 1,000 UNIT TAB PO SCH (08:40)
[2019-03-18] MEDS: MULTIVITAMINS, THERA 1 EACH TAB PO SCH (08:40)
[2019-03-18] MEDS: POTASSIUM CHLORIDE ER 10 MEQ TAB.ER.PRT PO SCH (08:40)
[2019-03-18] MEDS ORDERED: ASPIRIN 325 MG TAB PO SCH (09:00)
[2019-03-18] MEDS ORDERED: ASPIRIN 81 MG PO SCH (09:00)
[2019-03-18] MEDS ORDERED: predniSONE 10 MG TAB PO SCH (09:00)
[2019-03-18] MEDS: SODIUM CHLORIDE 0.9% 1,000 ML IV SCH (10:12)
[2019-03-18 12:04] LABS: Glucose,Whole Blood 121 mg/dL (75-99)
--- NOTE | 2019-03-18 13:09 | MR ---
MR brain without contrast HISTORY: Cerebral vascular accident Multiplanar multisequence imaging through the brain Correlation CT brain 03/17/2019 There is restricted diffusion along the insular cortex on the right and along the right frontal white matter in the periventricular location. There is no hemorrhage or hydrocephalus. Corresponding abnor mal signal noted on inversion recovery T2-weighted sequences. There are scattered and confluent hyper intensities on inversion recovery and T2-weighted sequences within the pericallosal, periventricular, subcortical and juxtacortical white matter. There are greater than 50 lesions present. There are nor mal vascular flow voids. The orbits show symmetric appearance. Mucosal disease present within the rig ht maxillary sinus. Corpus callosum, pituitary, cervical medullary junction, cerebellopontine angles are within normal limits. There is some artifact on the exam. IMPRESSION: Subacute cerebrovascular accident as described. Evidence of chronic small vessel ischemia and age-related atrophy.
[2019-03-18 14:19] LABS: Hemoglobin A1C 5.9 % (4.0-6.0)
--- NOTE | 2019-03-18 14:56 | P.PN ---
Subjective Progress Note Date: 03/18/19 Principal diagnosis: CVA No acute events O/N. Neuro symptoms resolved. Daughter at bedside with questions. No new neuro c/o. Objective - Vital Signs Vital signs: Vital Signs Temp 97.8 F 03/18/19 11:43 Pulse 85 03/18/19 11:43 Resp 18 03/18/19 11:43 BP 143/77 03/18/19 11:43 Pulse Ox 97 03/18/19 11:43 Intake & Output 03/17/19 03/18/19 03/18/19 18:59 06:59 18:59 Intake Total 360 120 240 Balance 360 120 240 Weight 68.353 kg 70.7 kg Intake: Oral 360 120 240 Other: Voiding Method Toilet # Voids 1 - Exam Gen NAD Pleasant and cooperative MS A+Ox4 Normal fluency Able to follow all commands CN PERRL VFF no APD EOMI no nystagmus or GRABIEL Mildly decreased left NLF Smile is symmetric Masseter's symmetric Hearing intact to normal voice bilaterally Speech not dysarthric Equal elevation of palate Tongue midline Sym shrug and SCM bilaterally Motor Normal bulk/tone No pronator or tremors Strength 5/5 sym throughout Sens Intact to LT x4 No neglect or extinction Coord No dysmetria on FTN bilaterally DTRs 2+/4 sym throughout Toes downgoing bilaterally No clonus at achilles Gait Deferred NIHSS 1 for FD - Labs CBC & Chem 7: 03/18/19 05:50 03/18/19 05:50 Labs: Abnormal Lab Results - Last 24 Hours (Table) 03/18/19 03/18/19 03/18/19 Range/Units 05:50 05:50 06:26 Hct 46.7 H (34.0-46.0) % Creatinine 0.51 L (0.52-1.04) mg/dL Glucose 113 H (74-99) mg/dL POC Glucose (mg/dL) 101 H (75-99) mg/dL 03/18/19 Range/Units 11:47 Hct (34.0-46.0) % Creatinine (0.52-1.04) mg/dL Glucose (74-99) mg/dL POC Glucose (mg/dL) 121 H (75-99) mg/dL - Imaging and Cardiology MRI - head: image reviewed (+DWI right frontal/PVWM c/w subacute ischemic infarct) Assessment and Plan Assessment: Right frontal/PVWM ischemic infarct, likely due to small vessel disease based on location/morphology Plan: -MRI Brain wo cathleen reviewed with patient/daughter in detail -CTA Head/Neck reviewed -TTE report pending -Augment antiplatelet therapy to clopidogrel 75mg po qd -Statin therapy goal LDL <70 -May gradually lower BP to normotensive range -PT/OT/SP per protocol -DVT prophylaxis: Heparin SC -d/w patient/daughter in detail. All questions answered. Thank you again for this consultation. Please call with ?. Time with Patient: Less than 30 (Time spent in direct patient care, greater than 50% of which was spent in [id number] counseling and coordination of care: 25 minutes)
[2019-03-18] MEDS: CLOPIDOGREL 75 MG TAB PO SCH (16:05)
--- NOTE | 2019-03-18 18:24 | ECHOF ---
Referral Reason:CVA MEASUREMENTS -------- HEIGHT: 165.1 cm WEIGHT: 70.3 kg BP: 127/74 IVSd: 1.2 cm (0.6 - 1.1) LVIDd: 4.0 cm (3.9 - 5.3) LVPWd: 1.0 cm (0.6 - 1.1) IVSs: 1.7 cm LVIDs: 2.7 cm LVPWs: 1.5 cm LA Diam: 3.8 cm (2.7 - 3.8) Ao Diam: 4.1 cm (2.0 - 3.7) AV Cusp: 2.0 cm (1.5 - 2.6) LA Diam: 3.0 cm (2.7 - 3.8) MV EXCURSION: 13.059 mm (> 18.000) MV EF SLOPE: 23 mm/s (70 - 150) EPSS: 0.7 cm MV E Haseeb: 0.74 m/s MV DecT: 220 ms MV A Haseeb: 1.08 m/s MV E/A Ratio: 0.68 RAP: 5.00 mmHg RVSP: 36.15 mmHg FINDINGS -------- Sinus rhythm. This was a technically good study. LV size, wall thickness and systolic function are normal, with an EF greater than 55%. There is nor mal global left ventricular contractility. Restrictive LV filling pattern, consistent with elevate d LA pressure {E/E'}. The right ventricle is normal in size and function. The left atrium is normal in size. The right atrium is normal in size. Interatrial and interventricular septum intact. There is mild aortic valve sclerosis. There is no evidence of aortic regurgitation. Normal appearing mitral valve. Mild mitral annular calcification present. No mitral regurgitatio n. The tricuspid valve appears structurally normal. Mild tricuspid regurgitation present. There is n o evidence of pulmonary hypertension. The pulmonic valve is normal. There is no pulmonic regurgitation present. The aortic root, ascending aorta and aortic arch are normal. Normal inferior vena cava with normal inspiratory collapse consistent with estimated right atrial pre ssure of 5 mmHg. The pericardium is normal. CONCLUSIONS -------- 1. Sinus rhythm. 2. This was a technically good study. 3. LV size, wall thickness and systolic function are normal, with an EF greater than 55%. 4. There is normal global left ventricular contractility. 5. Restrictive LV filling pattern, consistent with elevated LA pressure {E/E'}. 6. The right ventricle is normal in size and function. 7. The left atrium is normal in size. 8. The right atrium is normal in size. 9. Interatrial and interventricular septum intact. 10. There is mild aortic valve sclerosis. 11. There is no evidence of aortic regurgitation. 12. Normal appearing mitral valve. 13. Mild mitral annular calcification present. 14. No mitral regurgitation. 15. The tricuspid valve appears structurally normal. 16. Mild tricuspid regurgitation present. 17. There is no evidence of pulmonary hypertension. 18. The pulmonic valve is normal. 19. There is no pulmonic regurgitation present. 20. The aortic root, ascending aorta and aortic arch are normal. 21. Normal inferior vena cava with normal inspiratory collapse consistent with estimated right atrial pressure of 5 mmHg. 22. The pericardium is normal. SENIOR QUALITY CONTROL INSPECTOR: Mohit Kimbrough RDCS
--- NOTE | 2019-03-18 18:49 | PN ---
PROGRESS NOTE DATE OF SERVICE: 03/18/2019. This 89year-old woman who was admitted with dysarthria with possible acute TIA is being closely monitored at this time. Neurology saw the patient and brain MRI was also done. MRI showed subacute CVI, and chronic small-vessel ischemia was also noted. The insular cortex on the right and along the right frontal white matter area was noted. No chest pain. No palpitations. No fever. On exam, alert and oriented x3. Pulse is 85, blood pressure 143/77, respiration 18, temperature 97.8, pulse ox 97% on room air. HEENT: Conjunctivae normal. NECK: No jugular venous distention. CARDIOVASCULAR SYSTEM: S1, S2 muffled. RESPIRATORY SYSTEM: Breath sounds diminished at the bases. No rhonchi. No crackles. ABDOMEN: Soft, non-tender. LEGS: No edema. No swelling. NERVOUS SYSTEM: Diffusely weak. LABS: WBC 7, hemoglobin 14.8. Accu-Cheks 113. ASSESSMENT: 1. Acute stroke involving the right insular cortex as well as along the right frontal white matter and periventricular area. 2. History of gastroesophageal reflux disease. 3. Hyperlipidemia. 4. History of pneumonia. 5. History rheumatoid arthritis. 6. History of cholecystectomy. 7. History of cataracts. 8. Remote history of nicotine dependence. 9. NO CODE, NO CPR, NO VENT. RECOMMENDATIONS AND DISCUSSION: I recommend to continue current medications, continue with the monitoring, symptomatic treatment. I recommend antiplatelet agents. Closely follow with Neurology. Guarded prognosis. Further recommendations to follow. MMODL / IJN: [id number] /
[2019-03-18] MEDS: ATORVASTATIN 10 MG TAB PO SCH (20:04)
[2019-03-19 06:00] LABS: Glucose,Whole Blood 96 mg/dL (75-99)
[2019-03-19] MEDS: INSULIN ASPART (NovoLOG) 100 UNIT/ML VIAL SQ SCH ×2 (06:37→12:17)
[2019-03-19] MEDS: PANTOPRAZOLE 40 MG TABLET PO SCH (06:39)
[2019-03-19] MEDS: POTASSIUM CHLORIDE ER 10 MEQ TAB.ER.PRT PO SCH (08:55)
[2019-03-19] MEDS: MULTIVITAMINS, THERA 1 EACH TAB PO SCH (08:55)
[2019-03-19] MEDS: CHOLECALCIFEROL 1,000 UNIT TAB PO SCH (08:55)
[2019-03-19] MEDS: CLOPIDOGREL 75 MG TAB PO SCH (08:55)
[2019-03-19] MEDS: HEPARIN SODIUM,PORCINE 5,000 UNIT/ML 1 ML VIAL SQ SCH (08:55)
[2019-03-19] MEDS: sulfaSALAzine 500 MG TAB PO SCH (08:56)
--- NOTE | 2019-03-19 10:18 | P.PN ---
Subjective Progress Note Date: 03/19/19 Principal diagnosis: CVA No acute events O/N. Neuro symptoms resolved. Ready to go home. No new neuro c/o. Objective - Vital Signs Vital signs: Vital Signs Temp 97.2 F L 03/19/19 03:30 Pulse 89 03/19/19 03:30 Resp 18 03/19/19 03:30 BP 138/78 03/19/19 03:30 Pulse Ox 96 03/19/19 03:30 Intake & Output 03/18/19 03/19/19 03/19/19 18:59 06:59 18:59 Intake Total 480 240 Balance 480 240 Weight 70 kg Intake: Oral 480 240 Other: Voiding Method Toilet # Voids 1 - Exam Gen NAD Pleasant and cooperative MS A+Ox4 Normal fluency Able to follow all commands CN PERRL VFF no APD EOMI no nystagmus or GRABIEL Smile is symmetric [place]'s symmetric Hearing intact to normal voice bilaterally Speech not dysarthric Equal elevation of palate Tongue midline Sym shrug and SCM bilaterally Motor Normal bulk/tone No pronator or tremors Strength 5/5 sym throughout Sens Intact to LT x4 No neglect or extinction Coord No dysmetria on FTN bilaterally DTRs 2+/4 sym throughout Toes downgoing bilaterally No clonus at achilles Gait Deferred NIHSS 0 - Labs CBC & Chem 7: 03/18/19 05:50 03/18/19 05:50 Labs: Abnormal Lab Results - Last 24 Hours (Table) 03/18/19 Range/Units 11:47 POC Glucose (mg/dL) 121 H (75-99) mg/dL - Imaging and Cardiology TTE 03/18/19. LV fxn nl EF >55% Normal LA size Interatrial and interventricular septum intact Assessment and Plan Assessment: Right frontal/PVWM ischemic infarct, likely due to small vessel disease based on location/morphology Plan: -MRI Brain wo cathleen and CTA Head/Neck reviewed with patient -TTE report reviewed; no structural cardioembolic source -Clopidogrel 75mg po qd -Statin therapy goal LDL <70 -Treat BP to normotensive range but avoid hypotension -PT/OT/SP per protocol -DVT prophylaxis: Heparin SC -d/w patient/daughter in detail. All questions answered -Stable for discharge from neuro standpoint. No further inpatient neuro recs. Will revisit prn. Thank you again for this consultation. Please call with ?. Time with Patient: Less than 30 (Time spent in direct patient care, greater than 50% of which was spent in [id number] counseling and coordination of care: 25 minutes.)
[2019-03-19 10:32] VITALS: BP 158/94; PULSE 82; RESP 16; TEMP 97.6
[2019-03-19 12:04] LABS: Glucose,Whole Blood 101 mg/dL (75-99)
--- NOTE | 2019-03-19 18:46 | DS ---
DISCHARGE SUMMARY DATE OF SERVICE: 03/19/2019. FINAL DIAGNOSES: 1. Acute stroke involving the right insular cortex as well as along the right frontal white matter with periventricular area. 2. History of gastroesophageal reflux disease. 3. Hyperlipidemia. 4. History of pneumonia. 5. History of rheumatoid arthritis. 6. History of cholecystectomy. 7. History of cataracts. 8. Remote history of nicotine dependence. 9. NO CODE, NO CPR, NO VENT. DISCHARGE DISPOSITION: The patient will be discharged in stable condition with guarded prognosis. HISTORY OF PRESENT ILLNESS: This 82-year-old woman with a past medical history of multiple medical problems was admitted with features of difficulty speaking. MRI showed acute stroke involving the right insular cortex, treated symptomatically. Neurology saw the patient. Neurovascular workup was otherwise negative. The patient improved significantly. The patient will be discharged in stable condition with guarded prognosis. On exam, vitals are stable. Cardiovascular: S1, S2. Abdomen soft. Nervous System: No focal deficits. DISCHARGE ADVICE AND MEDICATIONS: 1. Diet is cardiac diet. 2. Activity limited until followup. 3. Follow up with Dr. Vazquez in 2-3 days. 4. Follow up with Dr. Blunt as recommended. 5. Follow up with Neurology as recommended. MEDICATIONS: 1. Lipitor 40 mg p.o. daily. 2. Plavix 75 mg p.o. daily. 3. Tylenol p.r.n. 4. Aspirin 81 mg p.o. daily. 5. Sulfasalazine 500 mg p.o. b.i.d. 7. DuoNeb q.4 p.r.n. 8. Motrin p.r.n. 9. Multivitamins 1 p.o. daily. 10.Potassium gluconate 495 mcg p.o. daily. 11.Prednisone 10 mg q.48h hours. 12.Vitamin D3 2000. Once again the patient will be discharged in stable condition with guarded prognosis. MMODL / IJN: [id number] / [facility] NETWORKBartolo
== END 2019-03-19 14:18 | disposition home or self-care (01) | DRG 66 ==
LOC: EC 12:01 → 3SCARD 14:33
PROVIDERS: ADMIT Internal Medicine; ATTEND Internal Medicine
DX: I63.89 Other cerebral infarction (principal); R29.810 Facial weakness; Z87.891 Personal history of nicotine dependence; E78.5 Hyperlipidemia, unspecified; H91.90 Unspecified hearing loss, unspecified ear; I73.9 Peripheral vascular disease, unspecified; K21.9 Gastro-esophageal reflux disease without esophagitis; M06.9 Rheumatoid arthritis, unspecified; Z79.82 Long term (current) use of aspirin; Z87.01 Personal history of pneumonia (recurrent); Z90.49 Acquired absence of other specified parts of digestive tract; Z90.2 Acquired absence of lung [part of]; Z79.52 Long term (current) use of systemic steroids; Z79.899 Other long term (current) drug therapy; Z98.42 Cataract extraction status, left eye; Z98.41 Cataract extraction status, right eye; Z60.2 Problems related to living alone; Z88.5 Allergy status to narcotic agent; Z66 Do not resuscitate
CPT/HCPCS: 36415; 70450; 70496; 70498; 70551; 71046; 80048; 80053; 80061; 82550; 82553; 83036; 84484; 85025; 85610; 85730; 93005; 93306; 94760; 99285

== ENCOUNTER → 2020-06-09 | Outpatient (CLI) | payer MEDICARE ==
--- NOTE | 2020-06-10 20:28 | BD ---
EXAMINATION TYPE: Axial Bone Density DATE OF EXAM: 06/09/2020 COMPARISON: NONE CLINICAL HISTORY: Height: 63.5 IN Weight: 156 LBS FRAX RISK QUESTIONS: Glucocorticoids (More than 3mos): 5 MG/DAY FOR 1 YEAR (Ex: prednisone, prednisolone, methylprednisolone, dexamethasone, and hydrocortisone). Secondary Osteoporosis: Rheumatoid Arthritis: YES RISK FACTORS HISTORY OF: Active: YES Postmenopausal woman: AGE 46 MEDICATIONS: Prednisone or other steroids: YES PREDNISONE 5MG/DAY FOR 1 YEAR Additional Medications: PREDNISONE, CALCIUM, VITAMIN D,SULFASALAZINE, ATORVASTATIN, CLOPIDOGREL, CLOR ATABS, EXAM MEASUREMENTS: Bone mineral densitometry was performed using the [employer] System. Bone mineral density as measured about the Lumbar spine is: ----- L1-L4(G/cm2): 1.204 T Score Values are as follows: ----- L2: -0.4 ----- L3: 0.3 ----- L4: 0.8 ----- L1-L4: 0.2 Bone mineral density BASELINE Bone mineral density about the R hip (g/cm2): 0.765 Bone mineral density about the L hip (g/cm2): 0.808 T Score values are as follows: -----R Neck: -2.0 -----L Neck: -1.7 -----R Total: -1.7 -----L Total: -1.9 Bone mineral density BASELINE IMPRESSION: Osteopenia (T Score between -2.5 and -1). There is slightly increased risk of fracture and the patient may be considered for treatment. Re-Screen 2-5 years. NOTE: T-SCORE=SD OF THE YOUNG ADULT MEAN.
== END | disposition home or self-care (01) ==
LOC: RADBDWWP 14:07
PROVIDERS: ATTEND Family Medicine
DX: Z13.820 Encounter for screening for osteoporosis (principal); M85.80 Other specified disorders of bone density and structure, unspecified site; M06.9 Rheumatoid arthritis, unspecified; J84.09 Other alveolar and parieto-alveolar conditions
CPT/HCPCS: 77080

== ENCOUNTER → 2021-06-07 | Outpatient (CLI) | payer MEDICARE ==
--- NOTE | 2021-06-07 11:54 | NM ---
EXAMINATION TYPE: NM stress lexiscan cardiolite DATE OF EXAM: 06/07/2021 COMPARISON: NONE HISTORY: Abnormal EKG, R 94.31, R07.89 TECHNIQUE: After the intravenous administration of 10.0 mCi Tc 99m Sestamibi - Cardiolite resting SP ECT images acquired 45 minutes post injection. The patient received 0.4mg Lexiscan, 25.7 mCi Tc 99m Sestamibi - Stress images obtained [address] injection FINDINGS: Review of stress and rest SPECT images demonstrates some mild decreased uptake along the anterior wal l left ventricle greater on stress as compared to rest images abnormality. Gated analysis shows norm al wall motion with an estimated left ventricular ejection fraction of 53 %. 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 A Yellow level critical message alert has been initiated for Ashly Vazquez III, MD via the [employer] Critical Results System on 06/07/2021 11:51 AM. This message alert has been sent to Ashly Vazquez III, MD via the preferences provided by the clinician for the receipt of Radiology Critical F indings. Message ID [id number].
--- NOTE | 2021-06-07 14:50 | EST ---
EXERCISE STRESS LEXISCAN STRESS TEST: AGE: 85 SEX: F HT: 5'5" WT: 156 lbs PROTOCOL: NA STAGE: NA DURATION OF EXERCISE: NA HEART RATE REST: 86 BLOOD PRESSURE REST: 164/86 MAXIMUM HEART RATE ACHIEVED: 122 MAXIMUM BLOOD PRESSURE: 178/102 85% MPHR: 113 100% MPHR: 133 METS: NA INDICATIONS: Chest pain CLINICAL INFORMATION: Baseline EKG revealed normal sinus rhythm without significant ST-T changes. Heart rate changed from 86 to 110 beats per minute. Blood pressure changed from 160/80 to 166/105. EKG remained inconclusive with minor resting EKG changes. No anginal symptoms reported. FINAL IMPRESSION: 1. By EKG criteria, this is an unremarkable stress test with minor resting EKG changes. Patient did not have any significant symptoms with Lexiscan administration. 2. The nuclear scan results, which are more pertinent, will be reported by the radiologist. MMCORINNEL / IJN: [id number] /
== END | disposition home or self-care (01) ==
LOC: RADNMMAIN 08:22
PROVIDERS: ATTEND Family Medicine
DX: R94.31 Abnormal electrocardiogram [ECG] [EKG] (principal); R07.9 Chest pain, unspecified
CPT/HCPCS: 93017; 78452; A9500

== ENCOUNTER → 2021-07-12 | Outpatient (CLI) | payer MEDICARE ==
--- NOTE | 2021-07-12 13:31 | CT ---
EXAMINATION TYPE: CT chest wo con DATE OF EXAM: 07/12/2021 COMPARISON: 02/08/2020 HISTORY: No complaints at time of service CT DLP: 539.1 mGycm. Automated Exposure Control for Dose Reduction was Utilized. TECHNIQUE: CT scan of the thorax is performed without IV contrast. FINDINGS: LUNGS: There is bilateral multifocal noncalcific pleural parenchymal thickening possibly relating to prior asbestos exposure. Few punctate benign granulomas are seen within the right upper lobe and left lower lobe. Scattered groundglass opacities with a somewhat nodular and morphology are seen within t he lingula and right middle lobe . Peribronchial cuffing within the lingula and right middle lobe are also seen. Right basilar opacity with retraction of minor fissure and extensive pleural surface with traction br onchiectasis suggesting fibrosis measuring 1.2 cm. Lingular varicose bronchiectasis and cylindrical r ight middle lobe bronchiectasis are noted. Subpleural reticulation is seen in addition to biapical no dular pleural thickening. No bronchiectasis is most marked within the left lower lobe. Nodule in the right upper lobe measuring 7 mm is contiguous with an area of pleural parenchymal scarr ing. Left basilar tree-in -bud opacities are also seen. Mucus plugging is seen within the left lung b ase. Scattered patchy groundglass opacities are seen throughout. MEDIASTINUM: There are no greater than 1 cm hilar or mediastinal lymph nodes. No pericardial effusion is seen. Ascending thoracic aorta is within normal limits measuring 3.3 cm as is the main pulmonary artery measuring 2.7 cm. Moderate coronary artery calcifications are present. OTHER: There is a moderate-sized hiatal hernia identified. IMPRESSION: 1. Extensive changes of bronchiectasis was noted within the left lower lobe. There is mild interlobul ar septal thickening involving the lung bases greater on the left suggestive of mild chronic intersti tial lung disease. Somewhat nodular areas of density measuring up to 1 cm in the left upper lobe shou ld be followed with a short-term standard CT of the chest. 2. Tree-in-bud opacity in the left lower lobe suggesting small airway disease of reactive or infectio us etiology. Peribronchial cuffing also seen within the lingula and right middle lobe with bronchiect asis may relate to reactive or infectious airway disease and/or bronchitis. Additionally these findin gs can be seen in atypical infection such as mycobacterium avium complex. 3. 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
== END | disposition home or self-care (01) ==
LOC: RADCTMAIN 12:54
PROVIDERS: ATTEND Internal Medicine Critical Care Medicine
DX: J47.9 Bronchiectasis, uncomplicated (principal); R91.8 Other nonspecific abnormal finding of lung field
CPT/HCPCS: 71250

== ENCOUNTER → 2022-08-28 | Outpatient (CLI) | payer MEDICARE ==
[2022-08-28 14:25] LABS: African American GFR (CKD) >90 (>60 ml/min/1.73 sqM); Blood Urea Nitrogen 11 mg/dL (7-17); Non-African American GFR(CKD) 81 (>60 ml/min/1.73 sqM)
--- NOTE | 2022-08-29 05:55 | CT ---
EXAMINATION TYPE: CT chest w con DATE OF EXAM: 08/28/2022 COMPARISON: Prior chest CT July 12, [address] February 07, 2018 HISTORY: interstitial lung disease CT DLP: 420 mGycm. Automated Exposure Control for Dose Reduction was Utilized. TECHNIQUE: CT scan of the thorax is performed following with IV Contrast, patient injected with 70 m L of Isovue 300. FINDINGS: LUNGS: Moderate biapical pleural/parenchymal scarring is redemonstrated. Moderate scattered parenchym al scarring is again seen bilaterally with most prominent involvement in the lingula and the left low er lobe just above the diaphragm. Areas of honeycombing are redemonstrated. There is lesser degree of involvement in the inferior right middle lobe. Scattered areas of involvement throughout the mid anne gs bilaterally are redemonstrated. Findings have similar appearance to the [address]. Minimal progressi on is felt present. No pleural effusion or pneumothorax seen bilaterally. Scattered small subcentimet er nodules likely reflecting nodular scarring are redemonstrated. No new pulmonary masses. Calcified pleural plaques are redemonstrated. MEDIASTINUM: There are no greater than 1 cm hilar or mediastinal lymph nodes. No cardiomegaly or pe ricardial effusion is seen. Coronary artery calcification is present. Prominent right and left pulmo nary arteries raises concern for underlying pulmonary artery hypertension. OTHER: Small to moderate size hiatal hernia is larger from prior studies. Small splenule within the l eft upper quadrant are redemonstrated. Osseous structures are demineralized with slight scoliotic cur vature redemonstrated. IMPRESSION: Moderate bilateral chronic parenchymal fibrotic changes as detailed above with minimal to no significant progression from 2018 CT
== END | disposition home or self-care (01) ==
LOC: RADCTMAIN 13:46
PROVIDERS: ATTEND Internal Medicine Critical Care Medicine
DX: J84.9 Interstitial pulmonary disease, unspecified (principal)
CPT/HCPCS: 82565; 84520; 71260; 36415; Q9967